=== PATIENT | female | born 1960 | race Caucasian/White ===

== ENCOUNTER 2020-02-25 02:41 | Outpatient (CLI) | payer OTHER, SELFPAY ==
[2020-02-25 18:57] LABS: SARS-CoV-2 RNA PCR Negative
== END 2020-02-25 02:42 | disposition home or self-care (01) ==
LOC: ANHCOVIDDT 02:41
PROVIDERS: PCP Family Medicine; Visit Provider Internal Medicine Gastroenterology
DX: Z01.812 Encounter for preprocedural laboratory examination (principal); Z11.59 Encounter for screening for other viral diseases
CPT/HCPCS: 87635; C9803; U0003

== ENCOUNTER 2020-02-28 01:00 | Day surgery (SDC) | payer OTHER, SELFPAY ==
[2020-02-21 11:39] VITALS: BMI 27.6
[2020-02-28 06:20] VITALS: BP 123/80; PULSE 71; RESP 18; TEMP 36.7; O2SAT 100
[2020-02-28] MEDS: LACTATED RINGERS 1,000 ML 150 ML IV CONT (07:09)
--- NOTE | 2020-02-28 07:41 | WPDANESEPPF ---
Anes - Initial Pre Proc Eval Procedure: Operation Date: 02/28/20 08:00 Proposed Procedures p Screening Colonoscopy - Erik Cano MD Date/Time: 02/28/20 07:41 Surgeon: Erik Cano MD Pre Op Diagnosis: Neoplasm Screening Patient Data Age: 59 Gender: F Height: 5 ft 4 in Weight: 71.6 kg Last Vital Signs Temp 98.1 F 02/28/20 06:20 Pulse 71 02/28/20 06:20 Resp 18 02/28/20 06:20 BP 123/80 02/28/20 06:20 Pulse Ox 100 02/28/20 06:20 Allergies Allergy/AdvReac Type Severity Reaction Status Date / Time amoxicillin Allergy Mild Rash Verified 02/28/20 06:41 codeine Allergy Unknown Unknown Verified 02/28/20 06:41 tramadol Allergy Unknown Cough Verified 02/28/20 06:41 hydrocodone AdvReac Mild NAUSEA AND Verified 02/28/20 06:41 VOMITING Home Medications Medication Instructions Recorded Confirmed Type escitalopram oxalate 5 mg tablet 5 mg PO DAILY 07/23/19 02/28/20 History leflunomide 20 mg tablet 20 mg PO DAILY 07/23/19 02/28/20 History fluticasone fur. 100 mcg-umeclid 1 inhalation INHALATION DAILY #90 09/08/19 02/28/20 Rx 62.5 mcg-vilant 25 mcg each inhalat.powder diclofenac sodium 75 mg 75 mg PO BID 01/05/20 02/28/20 History tablet,delayed release levothyroxine 100 mcg tablet 100 mcg PO DAILY #90 tablet 01/24/20 02/28/20 Rx fp-ny-jjyt-FA-Ca carb-vit K 18 tablet PO DAILY 02/21/20 02/28/20 History [Women's Multivitamin] Patient hx anesthesia problems: none Family hx anesthesia problems: none PMFSH Past Medical History Medical History (Updated 02/28/20 @ 07:41 by Jose Blevins MD) Hypothyroidism (acquired) Pulmonary emphysema Systemic lupus erythematosus Social History Social History Years smoked: 15 Smoking status: Never smoker Tobacco type: cigarettes Second hand tobacco smoke exposure: No Smoking end date: 07/21/97 Alcohol intake: current Gender identity (if verbalized by the patient): Female Anes - Eval Final PreProcedure Day of Procedure 02/28/20 07:41 Patient weight: normal Heart: regular rate and rhythm Lungs: clear to auscultation Airway: Mallampati scale class II Neurological: alert and oriented Last oral intake: >/= 8 hours ASA classification: III Emergent: no Anesthetic plan: proceed Anesthesia type and monitoring: general GIVS and standard monitoring Informed Consent: The patient's anesthetic plan and its attendant risks and benefits were discussed with the patient/family/POA. Questions were solicited and answers provided to the satisfaction of the patient/family/POA.
--- NOTE | 2020-02-28 07:51 | WPDGICN ---
Assessment and Plan Assessment and plan (1) Encounter for screening for colorectal malignant neoplasm: Code(s): Z12.11 - Encounter for screening for malignant neoplasm of colon; Z12.12 - Encounter for screening for malignant neoplasm of rectum Status: Acute Assessment and Plan: Patient appears to be at average risk. Screening colonoscopy to be performed today. GI Consult Note Consult date/time: 02/28/20 07:51 HPI: Taniya Austin is a 59 year old female Seen in evaluation at the request of Dr. Judd Woodson. Patient presents for neoplasia screening. Patient states her weight appetite bowel movements are normal. She denies abdominal pain. Her family history is noncontributory. Patient states that her there is no blood in her stools. Her weight has remained stable. Review of Systems Review of Systems: All systems reviewed & are unremarkable except as noted in HPI and below PMFSH Past Medical History Medical History Hypothyroidism (acquired) Pulmonary emphysema Systemic lupus erythematosus Family History Family History Mother Hypertension Father Cerebrovascular accident Family history of dementia Social History Social History Years smoked: 15 Smoking status: Never smoker Tobacco type: cigarettes Second hand tobacco smoke exposure: No Smoking end date: 07/21/97 Alcohol intake: current Gender identity (if verbalized by the patient): Female Meds Home Medications and Allergies Home Medications Medication Instructions Recorded Confirmed Type escitalopram oxalate 5 mg tablet 5 mg PO DAILY 07/23/19 02/28/20 History leflunomide 20 mg tablet 20 mg PO DAILY 07/23/19 02/28/20 History fluticasone fur. 100 mcg-umeclid 1 inhalation INHALATION DAILY #90 09/08/19 02/28/20 Rx 62.5 mcg-vilant 25 mcg each inhalat.powder diclofenac sodium 75 mg 75 mg PO BID 01/05/20 02/28/20 History tablet,delayed release levothyroxine 100 mcg tablet 100 mcg PO DAILY #90 tablet 01/24/20 02/28/20 Rx ca-zx-qnpx-FA-Ca carb-vit K 18 tablet PO DAILY 02/21/20 02/28/20 History [Women's Multivitamin] Allergies Allergy/AdvReac Type Severity Reaction Status Date / Time amoxicillin Allergy Mild Rash Verified 02/28/20 06:41 codeine Allergy Unknown Unknown Verified 02/28/20 06:41 tramadol Allergy Unknown Cough Verified 02/28/20 06:41 hydrocodone AdvReac Mild NAUSEA AND Verified 02/28/20 06:41 VOMITING Vital Signs Vital Signs - 24 hr 02/28/20 06:20 Temperature 98.1 F Pulse Rate 71 Respiratory Rate 18 Blood Pressure 123/80 Pulse Oximetry 100 Exam Narrative: Exam Narrative: Physical exam reveals patient to be alert. Vital signs Stable. HEENT exam unremarkable. She is anicteric. Lungs are clear to auscultation and percussion. Heart is without murmur or extra sounds. Abdominal exam bowel sounds are present soft nontender with no hepatosplenomegaly. Digital external rectal exam is normal.
[2020-02-28 08:25] VITALS: BP 118/95; PULSE 75; RESP 20; O2SAT 99
[2020-02-28 08:35] VITALS: BP 130/67; PULSE 60; RESP 14; O2SAT 100
[2020-02-28 08:45] VITALS: BP 136/82; PULSE 61; RESP 23; O2SAT 100
== END 2020-02-28 09:03 | disposition home or self-care (01) ==
PROVIDERS: PCP Family Medicine; Visit Provider Internal Medicine Gastroenterology
PROC: 0DJD8ZZ Inspection of Lower Intestinal Tract, Via Natural or Artificial Opening Endoscopic (ICD-10-PCS; CPT 45378; principal; 2020-02-28 08:00)
DX: Z12.11 Encounter for screening for malignant neoplasm of colon (principal); D12.4 Benign neoplasm of descending colon; E03.9 Hypothyroidism, unspecified; J43.9 Emphysema, unspecified; M32.9 Systemic lupus erythematosus, unspecified; Z87.891 Personal history of nicotine dependence
CPT/HCPCS: 45385; 88305; J2704; J7120

== ENCOUNTER 2020-03-15 07:50 | Outpatient (CLI) | payer OTHER, SELFPAY ==
--- NOTE | ~2020-03-15 | DEXA_ITS ---
Bone Density Report Name: Taniya Austin Age: 60 Sex: Female Ethnicity: White Date of : 1960 Indication: postmenopausal; asthma or emphysema; Referring Provider: NIYA FOUNTAIN Study: Bone densitometry was performed. Exam Date: March 15, 2020 Accession number: [id number] Bone Density: Region BMD T-score Z-score Classification AP Spine (L1-L4) 1.096 0.4 2.0 Normal Femoral Neck (Left) 0.822 -0.2 1.1 Normal Total Hip (Left) 0.920 -0.2 0.9 Normal Total Hip Bilateral Avg 0.904 -0.4 0.8 Normal Femoral Neck (Right) 0.817 -0.3 1.1 Normal Total Hip (Right) 0.886 -0.5 0.6 Normal World Health Organization criteria for BMD impression classify patients as: Normal (T-score at or above -1.0), Osteopenia (T-score between -1.0 and -2.5), or Osteoporosis (T-score at or below -2.5). 10-year Fracture Risk: FRAX not reported because: All T-scores for Spine Total, Hip Total, Femoral Neck at or above -1.0 Clinical Information Provided by Patient: Has used the following medications: Vitamin D Has the following medical conditions: Asthma or Emphysema Patient maximum height was 64 Menopause Age: 51 Drinks caffeinated beverages Onset of menses at age 7 Number of children 1 Impression: The patient has normal bone mass. Discussion: BONE DENSITY IS ABOVE THE MINIMUM DESIRABLE LEVEL AT ALL SKELETAL SITES TESTED. This patient?s bone mineral density is above the minimum desirable level (T-score -1.0 or better) at all sites measured. The patient should follow a healthful lifestyle (good nutrition with adequate calcium and vitamin D, and appropriate weight-bearing exercise). Follow-Up: Consider repeating this study in 5 years or sooner if there is some new clinical indication. Reported by: [facility] on 03/15/2020 8:40:00 AM. Reviewed, dictated and finalized at location AJadon BARROSO
--- NOTE | ~2020-03-15 | MM_ITS ---
EXAMINATION: MM screening jaime BI w silvia HISTORY: Screening TECHNIQUE: Craniocaudal and mediolateral oblique 3-D tomosynthesis images were obtained and synthetic 2-D images were generated. CAD analysis was submitted and interpreted. COMPARISON: Comparison to multiple prior studies sequentially, with oldest reviewed study dated 11/2010. BREAST PARENCHYMAL COMPOSITION: There are scattered areas of fibroglandular density. FINDINGS: There is no evidence of suspicious mass, calcification, or architectural distortion to sugg est malignancy in either breast. There has been no suspicious interval change. IMPRESSION: 1. No mammographic evidence of malignancy. 2. Recommend routine screening mammography in one year. BI-RADS Category 1: Negative Reviewed, dictated and finalized at location A.
== END 2020-03-15 07:51 | disposition home or self-care (01) ==
LOC: ANHIMG 07:52
PROVIDERS: PCP Family Medicine; Visit Provider Family Medicine
DX: Z12.31 Encounter for screening mammogram for malignant neoplasm of breast (principal); Z78.0 Asymptomatic menopausal state
CPT/HCPCS: 77063; 77067; 77080

== ENCOUNTER 2020-03-28 15:01 | Outpatient (RCR) | payer OTHER, SELFPAY ==
--- NOTE | 2020-03-28 15:46 | PTOPEVAL ---
Thank you for referring Taniya Austin to [facility][Note 3].? The patient is scheduled to be seen for therapy? ____x/week for ___ weeks. Please review, sign, date and return this plan of care AVELINO. I agree with and certify that the following plan of care is medically necessary. Referring Physician Date Admitting Provider: Attending Provider: PHYSICIAN NOT ON STAFF Referring Provider: *PT Outpatient Evaluation Start: 03/28/20 15:11 Freq: Status: Active Protocol: Document 03/28/20 15:11 JUSTEN (Rec: 03/28/20 15:40 JUSTEN [email or web address]) Outpatient Past Medical History Neurological History Hx Neurological Disorders No Significant History Cardiovascular History Hx Cardiac Disorders No Significant History Respiratory History Hx Chronic Obstructive Pulmonary Disease Yes (COPD) Gastrointestinal History Hx Cholecystectomy Yes Genitourinary History Hx Genitourinary Disorders No Significant History Musculoskeletal History Hx Arthritis Yes Hx Orthopedic Surgery Yes: shoulder repair Hematological History Hx Hematological Disorders No Significant History Endocrine History Hx Hypothyroidism Yes HEENT History Hx HEENT Disorders No Significant History Integumentary History Hx Other Skin Disorders Yes: psoriatic arhritis Reproductive History Hx Other Reproductive Disorders Yes: ovary removed Psychosocial History Hx Psychiatric Disorders No Significant History Pain History History of Any Previous or Ongoing No Significant History Instance of Pain Anesthesia History Hx Other Anesthesia Reactions Yes: nausea Evaluation Information Problem Diagnosis chronic low back pain with right sided sciatica Onset 03/28/20 Additional Evaluation Detail Oswestry= 48% limitation Subjective Information Pt. reports that she was dx Query Text:As Reported By Patient/ with psoriatic arthritis 1 Family year ago. She reports that she has had developing low back pain since. She describes pain across the low back and radiates into the hip joint. She states that sitting and walking for long periods will increase her pain . She states that turning her leg can increase her pain. She reports that pain can wake her at night. She states that her goal is to decrease her pain. Prior Level of Function Activity L
--- NOTE | 2020-04-25 09:08 | PCPTNOTE ---
04/25/20-pt cancelled appointment. pt states she just got out of hospital and will have to cancel for the week.-HM
== END 2020-04-18 23:59 | disposition home or self-care (01) ==
LOC: CHSPT 15:01
DX: M54.41 Lumbago with sciatica, right side (principal); G89.29 Other chronic pain
CPT/HCPCS: 97014; 97110; 97161; G0283

== ENCOUNTER 2020-06-02 06:47 | Outpatient (NON) | payer OTHER, SELFPAY ==
[2020-06-03 13:20] LABS: SARS-CoV-2 RNA PCR Negative
== END 2020-06-02 06:48 ==
LOC: ANHCOVIDDT 06:47
PROVIDERS: PCP Family Medicine; Visit Provider Family Medicine
DX: Z20.828 Contact with and (suspected) exposure to other viral communicable diseases (principal); R05 Cough; R50.9 Fever, unspecified; R52 Pain, unspecified
CPT/HCPCS: 87635; C9803; U0003

== ENCOUNTER 2020-11-13 14:58 | Outpatient (RCR) | payer OTHER, SELFPAY ==
--- NOTE | 2020-11-13 17:42 | PTOPEVAL ---
Thank you for referring Taniya Austin to [facility].? The patient is scheduled to be seen for therapy? ____x/week for ___ weeks. Please review, sign, date and return this plan of care AVELINO. I agree with and certify that the following plan of care is medically necessary. Referring Physician Date Admitting Provider: Attending Provider: FER QUINTERO Referring Provider: BeckyPT Outpatient Evaluation Start: 11/13/20 15:06 Freq: Status: Active Protocol: Document 11/13/20 15:06 ACR (Rec: 11/13/20 16:06 ACR [email or web address]) Therapy Assessment Status Assessment Status Assessment Status Evaluation Outpatient Past Medical History Neurological History Hx Neurological Disorders No Significant History Cardiovascular History Hx Cardiac Disorders No Significant History Respiratory History Hx Chronic Obstructive Pulmonary Disease Yes (COPD) Gastrointestinal History Hx Cholecystectomy Yes Genitourinary History Hx Genitourinary Disorders No Significant History Musculoskeletal History Hx Arthritis Yes Hx Orthopedic Surgery Yes: shoulder repair Hematological History Hx Hematological Disorders No Significant History Endocrine History Hx Hypothyroidism Yes HEENT History Hx HEENT Disorders No Significant History Integumentary History Hx Other Skin Disorders Yes: psoriatic arhritis Reproductive History Hx Other Reproductive Disorders Yes: ovary removed Psychosocial History Hx Psychiatric Disorders No Significant History Pain History History of Any Previous or Ongoing No Significant History Instance of Pain Anesthesia History Hx Other Anesthesia Reactions Yes: nausea Evaluation Information Problem Diagnosis R MARISOL Onset 11/08/20 Subjective Information Patient states on 11/08/20 she Query Text:As Reported By Patient/ got a R MARISOL. She states she Family was discharged at the hospital yesterday. Patient knows her precautions. Patient states that the pain medications are making her nauseous. Patient states she is doing the exercises her surgeon gave her which are, heel slides, SAQ, ankle pumps, glute sets, and supine hip abduction. Patient states she is having difficulty with walking, standing, navigating the stairs, standing for long periods of time, and doing any
--- NOTE | 2020-12-07 09:24 | PCPTNOTE ---
On 12/07/20, the student, [Luana Dumont, SPT], provided care and completed [email or web address] documentation on this patient. I have reviewed the student's documentation and agree with the findings.
--- NOTE | 2020-12-14 09:29 | PTOPEVAL ---
Thank you for referring Taniya Austin to [facility].? The patient is scheduled to be seen for therapy? ____x/week for ___ weeks. Please review, sign, date and return this plan of care AVELINO. I agree with and certify that the following plan of care is medically necessary. Referring Physician Date Admitting Provider: Attending Provider: FER QUINTERO Referring Provider: NISHANT Outpatient Evaluation Start: 11/13/20 15:06 Freq: Status: Active Protocol: Document 12/14/20 07:50 ACR (Rec: 12/14/20 09:29 ACR [id number]) Therapy Assessment Status Assessment Status Assessment Status Discharge Outpatient Past Medical History Neurological History Hx Neurological Disorders No Significant History Cardiovascular History Hx Cardiac Disorders No Significant History Respiratory History Hx Chronic Obstructive Pulmonary Disease Yes (COPD) Gastrointestinal History Hx Cholecystectomy Yes Genitourinary History Hx Genitourinary Disorders No Significant History Musculoskeletal History Hx Arthritis Yes Hx Orthopedic Surgery Yes: shoulder repair Hematological History Hx Hematological Disorders No Significant History Endocrine History Hx Hypothyroidism Yes HEENT History Hx HEENT Disorders No Significant History Integumentary History Hx Other Skin Disorders Yes: psoriatic arhritis Reproductive History Hx Other Reproductive Disorders Yes: ovary removed Psychosocial History Hx Psychiatric Disorders No Significant History Pain History History of Any Previous or Ongoing No Significant History Instance of Pain Anesthesia History Hx Other Anesthesia Reactions Yes: nausea Evaluation Information Problem Diagnosis R MARISOL Onset 11/08/20 Subjective Information Patient states that since Query Text:As Reported By Patient/ beginning therapy the patient Family reports she is at 80% improved . She states that she is able to do everything she needs to do, but has difficulty with getting her leg on and off of the bed. She uses her strap to help with that. She states she is able to to walk for long periods as long as she has her cane, but she is not using her cane in the house and is not having difficulty. She states she bought a heel lift for her L foot. Pain Assessment Timing of Pain Assessment Timing of Pain Assessment
== END 2020-12-14 10:00 | disposition home or self-care (01) ==
LOC: CHSPT 14:58
PROVIDERS: PCP Family Medicine
DX: M16.11 Unilateral primary osteoarthritis, right hip (principal)
CPT/HCPCS: 97110; 97116; 97161; 97530

== ENCOUNTER 2022-01-14 14:45 | Outpatient (CLI) | payer OTHER, SELFPAY ==
--- NOTE | ~2022-01-14 | MM_ITS ---
EXAMINATION: MM screening jaime BI w silvia HISTORY: Screening TECHNIQUE: Craniocaudal and mediolateral oblique 3-D tomosynthesis images were obtained and synthetic 2-D images were generated. CAD analysis was submitted and interpreted. COMPARISON: Comparison to multiple prior studies sequentially, with oldest reviewed study dated 02/2015. BREAST PARENCHYMAL COMPOSITION: 07/28/2014 FINDINGS: There is no evidence of suspicious mass, calcification, or architectural distortion to sugg est malignancy in either breast. There has been no suspicious interval change. IMPRESSION: 1. No mammographic evidence of malignancy. 2. Recommend routine screening mammography in one year. BI-RADS Category 1: Negative Reviewed, dictated and finalized at location A.
== END 2022-01-14 14:46 | disposition home or self-care (01) ==
LOC: ANHIMG 14:47
PROVIDERS: PCP Family Medicine; Visit Provider Physician Assistant Medical
DX: Z12.31 Encounter for screening mammogram for malignant neoplasm of breast (principal)
CPT/HCPCS: 77063; 77067

== ENCOUNTER 2022-04-29 16:55 | Outpatient (RCR) | payer OTHER, SELFPAY ==
--- NOTE | 2022-04-29 18:10 | PTOPEVAL1 ---
Assessment and note entered by Dionna Louis DPT Evaluation Information Assessment Status Evaluation Diagnosis Back pain Onset 04/16/2022 Subjective Information Pt reports that her back pain has been going on for several years now with insidious onset. Pain has been worsening especially in the last 4-5 months. Pt kept attributing pain to psoriatic arthritis, but went to see a pain specialist. She is to get surgery in July for her back. Pt has pain in her back as well as in her bilateral legs. She gets pain down to the toes in each leg but sometimes wanes in intensity as sometimes worsens in one leg over the other. Pt reports pain is better when she moves and worse with inactivity, especially sitting for more than 15 minutes. She reports she had had back pain in the past. Pt reports that sleep is mostly unaffected but depends on how active she is. Pt reports she likes to walk, swim, play with her grandkids. She is going to [place] in June so she wanted to hold off on surgery until after this trip. Reported Pain Level Pain Score 6: Self Report Assessment PT Clinical Summary Pt presents to physical therapy with low back pain and radicular symptoms and demonstrates decreased strength, decreased mobility, and antalgic gait. Her current deficits make it more challenging for her to maintain positions for an extended period of time such as sitting and standing. She was provided with an HEP focused on improving mobility and strength within her tolerance in preparation for her upcoming surgery in July. She will benefit from skilled PT to facilitate symptom relief, improve the aforementioned impairments, and return to functional and recreational activities. Plan of Care Interventions Electrical Stimulation,Gait Training,Hot Pack/Cold Pack,Manual Therapy,Mechanical Traction,Neuro Re- education,Patient/Caregiver Educati,Therapeutic Activities,Therapeutic Exercise PT Services Indicated Yes Treatment Frequency and 2x week for 12 visits Duration These treatments will address the objective and functional deficits as defined above. The patient will be advanced safely and appropriately in order for the patient to progress towards his/her prior level of function. Additional exercises will be introduced and as well as a comprehensive home exercise program upon discharge, if needed, ?to ensure carryover of functional gains achieved in the clinic. This
== END 2022-05-24 13:19 | disposition home or self-care (01) ==
LOC: CHSPT 16:55
DX: M51.36 Other intervertebral disc degeneration, lumbar region (principal)
CPT/HCPCS: 97014; 97110; 97140; 97161; G0283

== ENCOUNTER 2022-11-11 15:52 | Outpatient (RCR) | payer OTHER, SELFPAY ==
--- NOTE | 2022-11-11 16:37 | PTOPEVAL1 ---
Assessment and note entered by Judd Mata Evaluation Information Assessment Status Evaluation Diagnosis low back pain Onset 11/01/22 Subjective Information Pt. reports that she has had on/off back pain for years. She reports she was scheduled for surgery but was denied surgery by her insurance. She reports that her pain is located across the low back and goes into both thighs and into the feet. She reports that pain is worsened with long periods of sitting. She reports that she can only stand for about 15 minutes before having to sit down. she states that she continues to work and utilizes a sit to stand desk at work. She tries to walk once and hour at work to combat her pain. She reports that she sleeps better sitting up compared to laying flat. She reports she does not have to much trouble with sleep. She states that her goal is to decrease her back pain. Reported Pain Level Pain Score 7: Self Report Assessment PT Clinical Summary Pt. is a 62 year old female who enters the clinic with low back pain. She presents with impaired lumbar mobility, impaired l.e. strength, impaired postural awareness and pain. Continued skilled PT is indicated in order to improve these areas to allow the pt. to achieve improved comfort with all IADL's. Plan of Care Interventions Electrical Stimulation,Hot Pack/Cold Pack,Manual Therapy,Patient/Caregiver Educati,Therapeutic Activities,Therapeutic Exercise PT Services Indicated Yes Treatment Frequency and 2x/week x 10 visits Duration These treatments will address the objective and functional deficits as defined above. The patient will be advanced safely and appropriately in order for the patient to progress towards his/her prior level of function. Additional exercises will be introduced and as well as a comprehensive home exercise program upon discharge, if needed, ?to ensure carryover of functional gains achieved in the clinic. This treatment plan has been reviewed and agreement upon by the patient.
--- NOTE | 2022-12-19 18:14 | PTOPDC ---
Assessment and note entered by Sarah Arenas, PT Evaluation Information Assessment Status Discharge Diagnosis low back pain Onset 11/01/22 Subjective Information Taniya Austin reports her lower back pain is still present but greatly improved. She is able to move around easier and is able to sleep pain free now. She does still have limitations with prolonged sitting or standing to 30 minutes. She feels she has improved 65% overall since initiating PT and is comfortable continuing her HEP. Reported Pain Level Pain Score 5: Self Report Assessment PT Clinical Summary Taniya Austin has completed 9 skilled PT visits for low back pain. She is reporting a 65% overall improvement in her lower back pain. She objectively demonstrates improved lumbar AROM, improved core strength, and no tenderness. She will be discharged. Plan of Care PT Services Indicated Yes
== END 2022-12-19 16:54 | disposition home or self-care (01) ==
LOC: CHSPT 15:52
DX: M48.061 Spinal stenosis, lumbar region without neurogenic claudication (principal); M51.16 Intervertebral disc disorders with radiculopathy, lumbar region; M51.36 Other intervertebral disc degeneration, lumbar region
CPT/HCPCS: 97014; 97110; 97161; 97750; G0283

== ENCOUNTER 2023-05-11 11:03 | Emergency (ER) | payer MEDICARE, OTHER, SELFPAY ==
--- NOTE | ~2023-05-11 | XR_ITS ---
XR chest 2V 05/11/2023 11:45 Indication: Cough Procedure: 2 view chest Comparison: 04/28/2019 Findings: There is chronic scarring in the upper lobes. Heart size normal. No focal air space disease , pulmonary edema, pleural effusion or suspected pneumothorax. Impression: 1: No acute cardiopulmonary disease. Reviewed, dictated and finalized at location A. Impression: 1: No acute cardiopulmonary disease.
[2023-05-11 11:04] VITALS: BP 159/101; PULSE 84; RESP 16; TEMP 36.4; O2SAT 100
--- NOTE | 2023-05-11 11:40 | PC.NURSE ---
pt taken to xray at this time
--- NOTE | 2023-05-11 11:45 | PC.NURSE ---
pt returned to room 16 at this time
--- NOTE | 2023-05-11 12:15 | ED.GENADULT ---
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 She comes today because she just got back home after a trip with family and started to have sore throat /cough that started about 3 days ago and 4 of the people she was with have tested positive for Strep. Denies chest pain/ shortness of breath / fevers Related Data Home Medications Medication Instructions Recorded Confirmed leflunomide 20 mg tablet 20 mg PO DAILY 07/23/19 10/30/22 [id number]-pmb-[id number]-FA-Ca carb-vit K 18 tablet PO DAILY 02/21/20 10/30/22 18 mg iron-400 mcg-500 mg tablet (Women's Multivitamin) clobetasol 0.05 % topical cream 1 applic topical DAILY PRN 08/04/20 10/30/22 triamcinolone acetonide 0.1 % 1 applic topical BID PRN 08/04/20 10/30/22 topical cream acetaminophen 650 mg 650 mg PO Q12H 02/22/22 10/30/22 tablet,extended release (Tylenol Arthritis Pain) azithromycin 500 mg tablet See Rx Instructions PO .COMPLEX 10/30/22 10/30/22 celecoxib 100 mg capsule 100 mg PO BID 10/30/22 10/30/22 ethambutol 400 mg tablet 400 mg PO DAILY 10/30/22 10/30/22 fluconazole 150 mg tablet 150 mg PO DAILY 10/30/22 10/30/22 magnesium oxide 400 mg PO DAILY 10/30/22 10/30/22 multivitamin-ferrous 1 tablet PO DAILY 10/30/22 10/30/22 fumarate-folic acid 18 mg-400 mcg tablet (Centrum) rifampin 300 mg capsule 300 mg PO DAILY 10/30/22 10/30/22 secukinumab 75 mg/0.5 mL 150 mg subcut WEEKLY 10/30/22 10/30/22 subcutaneous syringe (Cosentyx) secukinumab 150 mg/mL subcutaneous mg subcut 12/23/22 pen injector (Cosentyx Pen) Allergies Allergy/AdvReac Type Severity Reaction Status Date / Time amoxicillin Allergy Mild Rash Verified 05/11/23 11:06 codeine Allergy Unknown Unknown Verified 05/11/23 11:06 tramadol Allergy Unknown Cough Verified 05/11/23 11:06 hydrocodone AdvReac Mild NAUSEA AND Verified 05/11/23 11:06 VOMITING Review of Systems Review of Systems: CONSTITUTIONAL: Denies fever, chills, or sweats. EYES: Denies visual changes, redness, or discharge. ENT: Denies rhinorrhea, congestion, sore throat, or otalgia. CARDIOVASCULAR: Denies chest pain, palpitations, or edema. RESPIRATORY: Denies cough or dyspnea. GASTROINTESTINAL: Denies abdominal pain, nausea, vomiting, or diarrhea. GENITOURINARY: Denies dysuria or hematuria. SKIN: Denies rash or itching. MUSCULOSKELETAL: Denies back pain, joint pain, or myalgia. NEUROLOGIC: Denies headache, numbness, dizziness, or weakness. PSYCHIATRIC: Denies anxiety or depression. [facility] Past Medical History Medical History Arthritis of right hip Chronic obstructive pulmonary disease Colon polyp COVID-19 Coxa vara (acquired) Hypothyroidism (acquired) Leg length difference, acquired Overweight (BMI 25.0-29.9) Psoriatic arthritis Pulmonary emphysema Systemic lupus erythematosus Surgical History Surgical History History of arthroplasty of right hip Family History Family History Mother Hypertension Father Cerebrovascular accident Family history of dementia Social History Social History Years smoked: 15 Smoking status: Former smoker Tobacco type: cigarettes Second hand tobacco smoke exposure: No Smoking end date: 07/21/97 Alcohol intake: current Substance use: never Lack of Transportation: No Lack of Food: Never True Current Housing: I Have Housing Concerned About Future Housing: No Difficulty Paying Gas/Electric Bills: No Difficulty Paying for Me
[2023-05-11 12:20] LABS: Influenza A QL RT-PCR Negative (Negative); Influenza B QL RT-PCR Negative (Negative); RSV RNA, RT-PCR Negative (Negative); SARS-CoV-2 RNA PCR Negative (Negative)
[2023-05-11 12:30] LABS: Strep Group A RT-PCR NOT DETECTED (Negative)
== END 2023-05-11 12:45 | disposition home or self-care (01) ==
PROVIDERS: Emergency Medicine; Emergency Provider Nurse Practitioner Family; PCP Family Medicine
DX: B34.9 Viral infection, unspecified (principal); E03.9 Hypothyroidism, unspecified; Z87.891 Personal history of nicotine dependence; Z20.822 Contact with and (suspected) exposure to COVID-19
CPT/HCPCS: 71046; 87637; 87651; 99283

== ENCOUNTER 2023-05-26 08:05 | Outpatient (RCR) | payer MEDICARE, OTHER, SELFPAY ==
--- NOTE | 2023-05-26 09:00 | PTOPEVAL1 ---
Assessment and note entered by Judd Mata Evaluation Information Assessment Status Evaluation Diagnosis left shoulder pain, psoriatic arthritis Onset 01/18/23 Subjective Information Pt. reports she developed shoulder pain around January. She reports no specific trauma, just woke with left shoulder pain. She describes pain in the area of the lateral brachial region of the left arm. She reports that pain will radiate into the shoulder and sometimes down into the hand. She describes the pain as a heavy ache. She denies any neck pain. She reports that pain is worsend with laying on her back or laying on the left side. She reports that reaching behind her back will also increase her pain. She states that she is only able to get about 4 hours on uninterupted sleep per night. She reports that reaching up and out with the left arm will increase her pain and washing her hair is difficult due to pain. Pt. is right hand dominant . She reports that her goal is to decrease her left shoulder pain. Reported Pain Level Pain Score 8: Self Report Assessment PT Clinical Summary Pt. is a 63 year old female who enters the clinic with indication of impingement syndrome at the left shoulder. She presents with impaired postural awareness, impaired proximal left u.e. strength and left shoulder stiffness. Continued skilled PT is indicated in order to improve these areas to allow the pt. to be able to complete all IADL's with improve comfort and efficiency. Plan of Care Interventions Electrical Stimulation,Hot Pack/Cold Pack,Manual Therapy,Neuro Re-education,Patient/Caregiver Educati,Therapeutic Activities,Therapeutic Exercise PT Services Indicated Yes Treatment Frequency and 3x/week x 12 visits Duration These treatments will address the objective and functional deficits as defined above. The patient will be advanced safely and appropriately in order for the patient to progress towards his/her prior level of function. Additional exercises will be introduced and as well as a comprehensive home exercise program upon discharge, if needed, ?to ensure carryover of functional gains achieved in the clinic. This treatment plan has been reviewed and agreement upon by the patient.
--- NOTE | 2023-05-26 09:01 | OPREHPOC ---
Outpatient Therapy Plan of Care This is a Multidisciplinary Plan of Care that may contain components documented by all disciplines (PT, OT, and ST.) PT Problem 1 PT Problem #1 Knowledge Deficit PT Goal 1 Goal Pt. will be independent with a HEP addressing strength and postural awareness Target Visit 2 PT Problem 2 PT Problem #2 Impaired Range of Motion PT Goal 1 Goal Pt. will demonstrate 165 degrees left shoulder flexion AROM Target Visit 12 PT Problem 3 PT Problem #3 Impaired Strength PT Goal 1 Goal Pt. will present with 5/5 proximal left u.e. strength in all planes of movement Target Visit 12 PT Problem 4 PT Problem #4 Impaired Functional Mobil PT Goal 1 Goal Pt. will present with less than 35% limiation on the Quick DASH indicating improved function. Target Visit 12
--- NOTE | 2023-06-16 08:49 | PTOPEVAL1 ---
Assessment and note entered by Judd Mata Evaluation Information Assessment Status Progress Diagnosis left shoulder pain, psoriatic arthritis Onset 01/18/23 Subjective Information Pt. reports she is doing better. She reports that her pain is less intense and that she is sleeping better. She states that she is getting about 6 hours of consectutive sleep per night. Reported Pain Level Pain Score 3: Self Report Assessment PT Clinical Summary Pt. has attended a total of 10 treatment sessions. In this time she has demonstrated progress in regards to strength and mobility pentecostalism. She continues to present with weakness and pain despite her progress. Given her progress continued skilled PT is indicated in order to further improve strength to allow for the ability to complete all IADL's without limitation. Plan of Care Interventions Electrical Stimulation,Hot Pack/Cold Pack,Neuro Re -education,Patient/Caregiver Educati,Therapeutic Activities,Therapeutic Exercise PT Services Indicated Yes Treatment Frequency and Continue treatment 2x/week for 1 week and 1x/week Duration x 4 weeks for a total of 6 treatment sessions to further improve strength and mobilty defictis. These treatments will address the objective and functional deficits as defined above. The patient will be advanced safely and appropriately in order for the patient to progress towards his/her prior level of function. Additional exercises will be introduced and as well as a comprehensive home exercise program upon discharge, if needed, ?to ensure carryover of functional gains achieved in the clinic. This treatment plan has been reviewed and agreement upon by the patient.
== END 2023-06-20 20:00 | disposition home or self-care (01) ==
LOC: CHSPT 08:05
DX: L40.50 Arthropathic psoriasis, unspecified (principal)
CPT/HCPCS: 97110; 97140; 97161

== ENCOUNTER 2023-07-10 06:58 | Outpatient (CLI) | payer MEDICARE, OTHER, SELFPAY ==
[2023-07-10 08:42] LABS: Cholesterol 243 mg/dL (0-200); HDL Direct 94 mg/dL (40-60); LDL Cholesterol Calculated 140 mg/dL (<130); Thyroid Stimulating Hormone 4.15 uIU/mL (0.36-3.74); Triglycerides 43 mg/dL (0-150)
== END 2023-07-10 06:59 | disposition home or self-care (01) ==
PROVIDERS: PCP Family Medicine; Visit Provider Nurse Practitioner Family
DX: E03.9 Hypothyroidism, unspecified (principal); E66.3 Overweight; L40.50 Arthropathic psoriasis, unspecified
CPT/HCPCS: 36415; 80061; 84443

== ENCOUNTER 2023-07-16 11:31 | Outpatient (CLI) | payer MEDICARE, OTHER, SELFPAY ==
[2023-07-16 12:17] LABS: SARS-CoV-2 RNA PCR Positive (Negative)
[2023-07-16 12:20] LABS: Influenza A QL RT-PCR Negative (Negative); Influenza B QL RT-PCR Negative (Negative); RSV RNA, RT-PCR Negative (Negative)
== END 2023-07-16 11:32 | disposition home or self-care (01) ==
LOC: CHSLAB 11:33
PROVIDERS: PCP Family Medicine; Visit Provider Nurse Practitioner Family
DX: J18.9 Pneumonia, unspecified organism (principal); Z20.822 Contact with and (suspected) exposure to COVID-19
CPT/HCPCS: 87637

== ENCOUNTER 2023-09-19 15:29 | Outpatient (CLI) | payer MEDICARE, OTHER, SELFPAY ==
--- NOTE | ~2023-09-19 | MM_ITS ---
EXAMINATION: MM screening [facility] BI w silvia HISTORY: Screening TECHNIQUE: Craniocaudal and mediolateral oblique 3-D tomosynthesis images were obtained and synthetic 2-D images were generated. CAD analysis was submitted and interpreted. COMPARISON: Comparison to multiple prior studies sequentially, with oldest reviewed study dated 07/2023. BREAST PARENCHYMAL COMPOSITION: There are scattered areas of fibroglandular density. FINDINGS: There is no evidence of suspicious mass, calcification, or architectural distortion to sugg est malignancy in either breast. There has been no suspicious interval change. IMPRESSION: 1. No mammographic evidence of malignancy. 2. Recommend routine screening mammography in one year. BI-RADS Category 1: Negative Reviewed, dictated and finalized at location A. [employer]
== END 2023-09-19 15:30 | disposition home or self-care (01) ==
LOC: ANHIMG 15:31
PROVIDERS: PCP Family Medicine; Visit Provider Nurse Practitioner Family
DX: Z12.31 Encounter for screening mammogram for malignant neoplasm of breast (principal)
CPT/HCPCS: 77063; 77067

== ENCOUNTER 2024-09-09 00:31 | Day surgery (SDC) | payer MEDICARE, OTHER, SELFPAY ==
[2024-08-23 12:48] VITALS: BMI 29.1
--- OUTSIDE RECORDS SUMMARY | 2024-09-09 00:34 | XMS_ITS | Encounter Summary ---
Author Organization [facility] Address [address] [place] [address] Phone Care Team Providers Care Ram Car Operator Name Role Phone Judd Woodson MD Primary Care Provider [phone] Emily Hinton NP Unavailable [phone] Brian Woo MD Unavailable [phone] Encounter Details Date Type Department Care Team (Late st Contact Info) Description 04/19/2021 Orders Only [facility] Orthopaedic Surgery [address] [facility] Advanced Medicine 6th [place] [address] [place] [address] Will Salguero MD [address] [facility] [address] [place] [address] Social History Tobacco Use Types Packs/Day Years Used Date Smoking Tobacco: Former Cigarettes 0.5 15 1 985 - 2000 Smokeless Tobacco: Never Alcohol Use Standard Drinks/Week Comments Yes 0 (1 standard drink = 0.6 oz pur e alcohol) rare AUDIT-C Answer Date Recorded Q1: How often do you have a drink containing alc ohol? Never 11/06/2020 Average Number of Drinks Not on file 021 Frequency of Binge Drinking Not on file 10/19 Comments No Sex and Gender Information Value Date Recorded Sex Assigned at Not on file Legal Sex Female 6:49 PM CONTINUING EDUCATION SPECIALIST Gender Identity Female 09/13/2020 6:20 AM CONTINUING EDUCATION SPECIALIST Sexual Orientation Not on file documented as of this encounter Plan of Treatment Not on file documented as of this encounter Goals Goal Patient Goal Type Associated Problems Recent Progress Patient-Stated? Author CCM Chronic Pain Care Plan Chronic Care Management No change(04/17 7:32 AM CDT) No Noelle Carl RN Note: Problem: Chronic Pain Goals: 1. Minimize further functional decline 2. Maximize quality of life 3. Control pain Strategies: - Activity/exercise program recommendation - Conservative stepwise pain medicine strategy with multi-disciplinary approach - Recommend healthy lifestyle strategies and compensatory methods as needed documented as of this encounter Visit Diagnoses Not on filedocumented in this encounter Additional Health Concerns Infection Onset Date Last Indicated Resolved Time Tuberculosis (rule out) Comment:06/04/2022 growing Mycobacterium aviuim. Nichol Snowden RN 05/30/2022 BAL on 05/20 growing AFB, no previous positive labs. Nichol Snowden RN 05/30/2022 05/30/2022 06/04/2022 9:[address] documented as of this encounter Care Teams Ram Car Operator Relationship Specialty Start Date End Date Judd Woodson MD PCP - General Family Medicine 11/05/18 Emily Hinton NP [address] [place] [address] Nurse Practitioner Used Building [employer] Yard Worker 10/09/22 Brian Woo MD [address] [place] [address] Consulting Physician Neurosurgery 11/01/22 [facility] - Outpatient Therapy Physical Therapist 07/21/22 documented as of this encounter
--- OUTSIDE RECORDS SUMMARY | 2024-09-09 00:35 | XMS_ITS | Encounter Summary ---
Author Organization [facility] Address [address] [place] [address] Phone Care Team Providers Care Chief Operations Officer Name Role Phone Jdud Woodson MD Primary Care Provider [phone] Emily Hinton NP Unavailable Brina Woo MD Unavailable [phone] Encounter Details Date Type Department Care Team (Late st Contact Info) Description 07/02/2023 Documentation [facility] Dermatology [address] [facility] [address] [place] [address] Ky Ayala MD [address] [place] [address] Social History Tobacco Use Types Packs/Day Years Used Date Smoking Tobacco: Former Cigarettes 0.5 28 1 972 - 2000 Smokeless Tobacco: Never Alcohol Use Standard Drinks/Week Comments Yes 0 (1 standard drink = 0.6 oz pur e alcohol) rare OASIS D0700: Social Isolation Answer Da te Recorded Frequency of experiencing loneliness or isolatio n Never 11/20/2022 AUDIT-C Answer Date Recorded Frequency of Alcohol Consumption Not on file 10/17/2022 Q2: How many drinks containi ng alcohol do you have on a typical day when you are drinking? Patient does not drink Frequency of Binge Drinking Not on file 03/3 Personal Safety Answer Date Recorded Have you ever been in or are you currently in a harmful physical or emotional relationship or is someone making you feel afraid or unsafe? Denies 11/19/2022 Comments No Sex and Gender Information Value Date Recorded Sex Assigned at Not on file Legal Sex Female 6:49 PM [employer] Gender Identity Female 09/13/2020 6:20 AM [employer] Sexual Orientation Not on file documented as [...] Diagnoses Not on filedocumented in this encounter Care Teams Chief Operations Officer Relationship Specialty Start Date End Date Judd Woodson MD PCP - General Family Medicine 11/05/18 Emily Hinton NP [address] [place] [address] Nurse Practitioner Wilton Weaver 10/09/22 Brian Woo MD [address] [address] Consulting Physician Neurosurgery 11/01/22 [facility] - Outpatient Therapy Physical Therapist 07/21/22 documented as of this encounter
--- OUTSIDE RECORDS SUMMARY | 2024-09-09 00:35 | XMS_ITS | Clinical Summary ---
Author Organization [facility] Address [address] [place] [address] Care Team Providers Care Floor Trader Name Role Phone Judd Woodson MD Primary Care Provider [phone] Emily Hinton NP Unavailable Brian Woo MD Unavailable [phone] Allergies Active Allergy Reactions Criticality Noted Date Comments Codeine Nausea only Low 02/05/2019 Gabapentin Nausea & Vomiting Low 11/27/2020 Hydrocodone Other (See comments) Low 11/15/2020 Nausea, Vomiting, Shakiness, Headaches Tramadol Nausea only Low 02/05/2019 Medications loratadine (CLARITIN) 10 mg tabletIndications :Allergic Rhinitis Take 1 tablet (10 mg total) by mouth as needed Active multivitamin-iron -folic acid (Centrum) 18-400 mg-mcg tabletIndications :Vitamin Deficiency Prevention Take 1 tablet by mouth every morning Active acetaminophen ER (TYLENOL) 650 mg 8 hr tabletIndications :Arthritic Pain Take 1 tablet (650 mg total) by mouth every 6 (six) hours Active magnesium oxide 400 mg magnesium capsuleIndication s:hypomagnesemia Take 1 tablet by mouth every other day Active triamcinolone (KENALOG) 0.1 % creamIndications: Skin Inflammation Apply topically as needed for irritation 45 g 1 3 Active citalopram (CeleXA) 20 mg tablet Take 1 tablet (20 mg total) by mouth daily 3 Active levothyroxine (SYNTHROID) 112 mcg tablet Take 1 tablet (112 mcg total) by mouth daily 3 Active fluticasone propionate (FLONASE) 50 mcg/actuation nasal spray Administer 1 spray into each nostril daily 1 each 3 4 Active halobetasol (ULTRAVATE) 0.05 % cream Apply topically 2 (two) times a day as needed for rash 50 g 2 4 Active celecoxib (CeleBREX) 200 mg capsule Take 1 capsule (200 mg total) by mouth 2 (two) times a day 180 capsule 2 4 12/22/19 25 Active metoprolol XL (TOPROL-XL) 25 mg extended release tablet Take 1 tablet (25 mg total) by mouth daily 4 Active leflunomide (ARAVA) 20 mg tabletIndications :Psoriatic arthritis (HCC) Take 1 tablet (20 mg total) by mouth every morning 90 tablet 1 4 Active Active Problems Problem Noted Date Diagnosed Date Psoriatic arthritis 08/16/2023 High risk medication use 08/16/2023 Encounter for long-term (current) use of antibio tics 01/31/2023 DDD (degenerative disc disease), lumbar 10/29/19 23 Overview (10/28/2022): Added automatically from request for surgery [id number] Mycobacterium infection 08/13/2022 Assessment & Plan (10/11/2022 2:32 PM CDT): - positive for mycobacterium avium infection, susceptibilities are scanned into [employer]. - Continue Assessment & Plan (08/13/2022 10:30 AM MOUNTER SOUSAPHONES): - opt for treatment of mycobacterium avium infection especially since she is immunosuppressed, we have requested susceptibilities on the sample but that may take a few weeks. - We have also ordered additional blood work including crypto, blasto, histo, APBA cascade. - - the patient is scheduled for a lumbar fusion next week. Ideally, we would prefer her to be on treatment for MAC for at least a month prior to surgery. Typically this infection stays localized to the lung and is very slow growing but there have been cases reported of spinal hardware associated infections occurring due to this bacteria. It would be safer if she could start therapy for at least one month prior to surgery. - This was discussed with her surgeon and he agreed to postpone - she can resume her rheumatological meds to help with pain in the interim (these were stopped prior to lumbar fusion) Intervertebral disc disorder with radiculopathy of lumbar region 05/28/2022 Overview (05/28/2022): Added automatically from request for surgery [id number] Neuroforaminal stenosis of lumbar spine 05/28/20 Overview (05/28/2022): Added automatically from request for surgery [id number] Pulmonary infiltrates 05/27/2022 Primary osteoarthritis of right hip 07/26/2020 Overview (07/26/2020): Added automatically from request for surgery [id number] Sacroiliac joint dysfunction of right side 06/12 COPD (chronic obstructive pulmonary disease) MDD (major depressive disorder) 02/08/2019 Hypothyroid 02/08/2019 Osteoarthritis 02/08/2019 Lung nodule Encounters Date Type Department Care Team Description 09/07/2024 10:30 AM MOUNTER SOUSAPHONES Office Visit [facility] Pulmonary [address] 8th [place] [address] [place] [address] Alexx Curry Chi, MD Pulmonary infiltrates (Primary Dx) 09/07/2024 8:30 AM MOUNTER SOUSAPHONES Infusion [facility] [address] [place] [phone] Psoriatic arthritis (HCC) (Primary Dx) 08/06/2024 9:00 AM MOUNTER SOUSAPHONES Infusion [facility] [address] [place] [phone] Psoriatic arthritis (HCC) (Primary Dx) 07/09/2024 9:30 AM MOUNTER SOUSAPHONES Infusion [facility] [address] [place] [phone] Psoriatic arthritis (HCC) (Primary Dx) 07/09/2024 9:10 AM MOUNTER SOUSAPHONES Lab [facility] ([facility]) [address] [place] [phone] Psoriatic arthritis (HCC) 07/09/2024 8:30 AM MOUNTER SOUSAPHONES Office Visit [facility] Rheumatology [address] [facility] 5th [place] [address] [place] [phone] Ciara Minor MD Psoriatic arthritis (HCC) (Primary Dx) 07/09/2024 Telephone [facility] Rheumatology [facility] 5th [place] [address] [place] [phone] Ciara Minor MD 06/23/2024 Orders Only [facility] [address] [place] [phone] Sadie Roberson RN 06/10/2024 Telephone [facility] Rheumatology [address] [place] [address] 5th [place] [address] [place] [address] Ciara Minor MD from Last 3 Months Immunizations Immunization Administration Dates Next Due COVID-19 mRNA (SecureWave) 0.3 m L (30 mcg) vaccine (12 years and up) 05/17/2024 Influenza, Quadrivalent, Hig h Dose, Preservative Free, Intrr 05/01/2021,05/02/2020 Influenza, Quadrivalent, Spl it, Preservative Free, Intramuscular 06/06/2022,04/16/2019,04/14/2019 Influenza, Trivalent, Preser vative Free, Intramuscular 05/17/2024 Influenza, Unspecified 04/25/2023 Okan SARS-CoV-2 Monovalent Vaccination (12+ Yrs) LU-READY TO USE 11/30/2021 Pneumococcal Conjugate PCV 13 02/18/2019 Pneumococcal Polysaccharide PPV23 07/23/2019 RSV Vaccine, Pref, Recombina nt, Subunit, Adjuvanted, PF, IM (Arexvy) 07/29/2023 ZOSTER Recombinant 06/09/2020,03/10/2020 Surgical History Surgery Date Site/Laterality Comments ROTATOR CUFF REPAIR Right CHOLECYSTECTOMY FLUORO GUIDED INJECTION HIP RIGHT 02/24/2019 Right FLUORO GUIDED INJECTION HIP RIGHT 08/09/2019 Right OOPHORECTOMY 07/21/1998 - 07/20/1999 TOTAL HIP ARTHROPLASTY 07/21/2020 - 07/20/2021 JOINT REPLACEMENT SKIN BIOPSY IR PICC LINE PLACEMENT > 5 YEARS 11/19/2022 N/A Medical History Medical History Date Comments COPD (chronic obstructive pulmonary disease) (HC C) Hypothyroidism MDD (major depressive disorder) Rotator cuff tear Bursitis Arthritis Emphysema lung (HCC) Emphysema of lung (HCC) Pneumonia Allergic rhinitis PONV (postoperative nausea and vomiting) scopolamine naive Family History Medical History Relation Name Comments Hypertension Brother Psoriasis Father Stroke Father Hypertension Mother Atrial fibrillation Sister Anesthesia problems Neg Hx Malig Hyperthermia Neg Hx Pseudochol deficiency Neg Hx Relation Name Status Comments Brother Father Mother Sister Social History Tobacco Use Types Packs/Day Years Used Date Smoking Tobacco: Former Cigarettes 0.5 28 1 972 - 2000 Smokeless Tobacco: Never Tobacco Cessation:Counseling Given: Not Answered Alcohol Use Standard Drinks/Week Comments Yes 0 [...] Frequency of Binge Drinking Not on file 09/20 Hunger Vital Sign Answer Date Recorded Within the past 12 months, y ou worried that your food would run out before you got the money to buy more. Never true 08/06/19 25 Within the past 12 months, t he food you bought just didn't last and you didn't have money to get more. Never true 08/06/2024 Personal Safety Answer Date Recorded Have you ever been in or are you currently in a harmful physical or emotional relationship or is someone making you feel afraid or unsafe? Denies 09/07/2024 Comments No Sex and Gender Information Value Date Recorded Sex Assigned at Not on file Legal Sex Female 6:49 PM MOUNTER SOUSAPHONES Gender Identity Female 09/13/2020 6:20 AM MOUNTER SOUSAPHONES Sexual Orientation Not on file Obstetrics History Last Filed Vital Signs Vital Sign Reading Time Taken Comments Blood Pressure 155/90 09/07/2024 10:30 AM MOUNTER SOUSAPHONES Patient just had infusion Pulse 60 09/07/2024 10:30 AM MOUNTER SOUSAPHONES Temperature 35.9 C (96.7 F) 09/07/2024 10:30 AM MOUNTER SOUSAPHONES Respiratory Rate 18 09/07/2024 10:3 0 AM MOUNTER SOUSAPHONES Oxygen Saturation 97% 09/07/2024 10: 30 AM MOUNTER SOUSAPHONES Inhaled Oxygen Concentration - - Weight 83.8 kg (184 lb 12.8 oz) 09/07/2024 10:30 AM MOUNTER SOUSAPHONES Height 162.6 cm (5' 4 ) 09/07/2024 10:3 0 AM MOUNTER SOUSAPHONES Body Mass Index 31.72 09/07/2024 10:30 AM MOUNTER SOUSAPHONES Plan of Treatment Health Maintenance Due Date Last Done Comments Breast Cancer Screening-Mammogram 1960 Colon Cancer Screening-Colonoscopy 1960 Depression Screening 1960 Osteoporosis Screening-Bone Density Scan 1960 DTaP/Tdap/Td Vaccine (1 - Tdap) 1969 Well Visit 65+ 2023 Fall Risk Assessment 11/20/2023 11/19/2022 Pneumococcal vaccine 65+ (3 of 3 - PCV20 or PCV21) 07/23/2024 07/23/2019, 02/18/2019 Covid-19 Vaccine (6 - 2023-2 5 season) 2024 05/17/2024, 11/30/2021, 04/09/2021, Additional history exists Zoster Vaccine Completed 06/09/2020, 03/10/2020 Hepatitis B Screening Completed 03/26/2024 Hepatitis C Screening Completed 03/26/2024 , 04/25/2023, 03/08/2022, Additional history exists Influenza Vaccine Completed 05/17/2024, , 06/06/2022, Additional history exists Goals Goal Patient Goal Type Associated Problems Recent Progress Patient-Stated? Author CCM Chronic Pain Care Plan Chronic Care Management No change(04/17 7:32 AM CDT) No Noelle Carl, RN Note: Problem: Chronic Pain Goals: 1. Minimize further functional decline 2. Maximize quality of life 3. Control pain Strategies: - Activity/exercise program recommendation - Conservative stepwise pain medicine strategy with multi-disciplinary approach - Recommend healthy lifestyle strategies and compensatory methods as needed Medical Devices Implanted Type Area Sdet Device Identifier Shelf Expiration Date Model / Serial / Lot [employer] [id number] 50mm Limit 3 Hole Hip D Hemisphere Offset Shell Acetabular - S0 - [id number] Implanted:Qty: 1 on 11/08/2020 by Will Salguero MD at [facility] Other - see comments Right: Hip [employer] [id number] 03/19/2030 [id number] / 0 / [id number] [employer] [id number] 36mm Lumen Hip D Liner Acetabular Longevity Sterile Latex Free - S0 - [id number] Implanted:Qty: 1 on 11/08/2020 by Will Salguero MD at [facility] Other - see comments Right: Hip [employer] [id number] 06/13/[id number] / 0 / [id number] [employer] [id number] Taperloc 144mm Type 1 Press Fit Reduce Hip 133d 12 Standard - S0 - [id number] Implanted:Qty: 1 on 11/08/2020 by Will Salguero MD at [facility] Other - see comments Right: Hip [employer] [id number] 11/16/2029 [id number] / 0 / [id number] [employer] 650-0660 G7 36mm Type 1 Modular Hip Acetabular -3mm Offset Head Femoral - S0 - [id number] Implanted:Qty: 1 on 11/08/2020 by Will Salguero MD at [facility] Other - see comments Right: Hip [employer] [id number] 10/25/2029 [id number] / 0 / [id number] [employer] [id number] Trilogy 6.5mm 40mm Self Tap Hip Acetabular Cortical Screw Bone - S0 - [id number] Implanted:Qty: 1 on 11/08/2020 by Will Salguero MD at [facility] Screw Right: Hip [employer] [id number] 03/02/2030 [id number] / 0 / [id number] Procedures Procedure Name Priority Date/Time Associated Diagnosis Comments EGFR Routine 07/09/2024 8:11 AM MOUNTER SOUSAPHONES Psoriatic arthritis (HCC) DIFFERENTIAL AUTO Routine 07/09/2024 8:1 1 AM MOUNTER SOUSAPHONES Psoriatic arthritis (HCC) CBC WITH AUTO DIFFERENTIAL Routine 07/09/2024 8:11 AM MOUNTER SOUSAPHONES Psoriatic arthritis (HCC) COMPREHENSIVE METABOLIC PANEL Routine 07/09/2024 8:11 AM MOUNTER SOUSAPHONES Psoriatic arthritis (HCC) ERYTHROCYTE SEDIMENTATION RATE Routine 07/09/2024 8:11 AM MOUNTER SOUSAPHONES Psoriatic arthritis (HCC) CRP (ACUTE PHASE) Routine 07/09/2024 8:1 1 AM MOUNTER SOUSAPHONES Psoriatic arthritis (HCC) HEPATITIS C ANTIBODY Routine 03/26/2024 9:13 AM CDT Psoriatic arthritis (HCC) from Last 3 Months or Most Recently Relevant to Health Maintenance Results * eGFR (07/09/2024 8:11 AM MOUNTER SOUSAPHONES) eGFR 86 >=60 mL/min/1. 73 m2 Comment: Interpretive Data Reference Interval Normal >/= 90 mL/min/1.73m2 Mildly decreased* 60 - 89 mL/min/1.73m2 Mildly to moderately decreased 45 - 59 mL/min/1.73m2 Moderately to severely decreased 30 - 44 mL/min/1.73m2 Severely decreased 15 - 29 mL/min/1.73m2 Kidney Failure < 15 mL/min/1.73m2 *Relative to young adult level Estimated glomerular filtration rate is determined by the 2020 CKD-EPI equation recommended by the National Kidney Foundation (A Unifying Approach to GFR Estimation: Recommendations of the NKF-ASK Task Force on Reassessing the Inclusion of Race in Diagnosing Kidney Disease, JASN 202). The CKD-EPI equation should not be used for patients with unstable renal function and has not been validated in children and those over 70. Current interpretive data was last reviewed 2021. Blood 07/09/2024 8:11 AM MOUNTER SOUSAPHONES 07/09/2024 9:40 AM MOUNTER SOUSAPHONES us Ciara Minor MD LAB BLOOD ORDERABLES F inal Result [facility] Department [place] [address] * (ABNORMAL) Differential, auto (07/09/2024 8:11 AM MOUNTER SOUSAPHONES) Neutrophil abs 3.5 1.5 - 6.5 K/cumm Imm gran abs 0.0 0.0 - 0.1 K/cumm [facility] Lymphocyte abs 1.5 0.8 - 3.3 K/cumm [facility] Monocyte abs 0.7 0.2 - 0.8 K/cumm [facility] Eosinophil abs 0.7(H) 0.0 - 0.5 K/cumm [facility] Basophil abs 0.1 0.0 - 0.1 K/cumm [facility] Neutrophil pct 54.0 % [facility] Comment: Interpretive Data Percent cell count reference ranges are not reported, since discordance with absolute values may lead to misinterpretation of CBC data. Current Interpretive Data was last revised on 2017. Imm gran pct 0.2 % [facility] Comment: Interpretive Data Percent cell count reference ranges are not reported, since discordance with absolute values may lead to misinterpretation of CBC data. Current Interpretive Data was last revised on 2017. Lymphocyte pct 22.8 % [facility] Comment: Interpretive Data Percent cell count reference ranges are not reported, since discordance with absolute values may lead to misinterpretation of CBC data. Current Interpretive Data was last revised on 2017. Monocyte pct 10.9 % [facility] Comment: Interpretive Data Percent cell count reference ranges are not reported, since discordance with absolute values may lead to misinterpretation of CBC data. Current Interpretive Data was last revised on 2017. Eosinophil pct 10.9 % [facility] Comment: Interpretive Data Percent cell count reference ranges are not reported, since discordance with absolute values may lead to misinterpretation of CBC data. Current Interpretive Data was last revised on 2017. Basophil pct 1.2 % [facility] Comment: Interpretive Data Percent cell count reference ranges are not reported, since discordance with absolute values may lead to misinterpretation of CBC data. Current Interpretive Data was last revised on 2017. Blood 07/09/2024 8:11 AM MOUNTER SOUSAPHONES 07/09/2024 9:35 AM MOUNTER SOUSAPHONES Ciara Minor MD LAB BLOOD ORDERABLES F inal Result [facility] [place] [address] * CBC with auto differential (07/09/2024 8:11 AM MOUNTER SOUSAPHONES) WBC 6.5 3.8 - 9.9 K/cumm Hgb 12.9 11.9 - 15.5 g/dL [facility] Hct 39.4 35.6 - 45.5 % [facility] Plt 303 150 - 400 K/cumm [facility] MPV 11.1 9.1 - 12.3 fL [facility] RBC 4.49 3.90 - 5.20 M/cumm [facility] MCV 87.8 81.3 - 96.4 fL [facility] MCH 28.7 27.1 - 33.3 pg [facility] MCHC 32.7 32.3 - 35.7 g/dL [facility] RDW CV 14.0 11.1 - 14.9 % [facility] RDW SD 44.6 35.7 - 48.1 fL [facility] NRBC abs 0.00 0.00 - 0.01 K/cumm [facility] Blood 07/09/2024 8:11 AM MOUNTER SOUSAPHONES 07/09/2024 9:35 AM MOUNTER SOUSAPHONES Ciara Minor MD LAB BLOOD ORDERABLES F inal Result [facility] Department [place] [address] * Erythrocyte sedimentation rate (07/09/2024 8:11 AM MOUNTER SOUSAPHONES) [facility] Erythrocyte sedimentation rate 18 1 - 30 mm/hr Blood 07/09/2024 8:11 AM MOUNTER SOUSAPHONES 07/09/2024 9:35 AM MOUNTER SOUSAPHONES Ciara Minor MD LAB BLOOD ORDERABLES F inal Result Performing Organization Address City/[facility] Co de Phone Number [facility] Department [place] [address] * CRP (acute phase) (07/09/2024 8:11 AM MOUNTER SOUSAPHONES) [facility] CRP 0.9 <=10.0 mg/L Blood 07/09/2024 8:11 AM MOUNTER SOUSAPHONES 07/09/2024 9:35 AM MOUNTER SOUSAPHONES Ciara Minor MD LAB BLOOD ORDERABLES F inal Result Performing Organization Address City/[facility] Co de Phone Number [facility] [place] [address] * Comprehensive metabolic panel (07/09/2024 8:11 AM MOUNTER SOUSAPHONES) [facility] Sodium 141 135 - 145 mmol/L Potassium, pl 4.8 3.3 - 4.9 mmol/L [facility] Chloride 106 97 - 110 mmol/L [facility] CO2 30 22 - 32 mmol/L [facility] Anion gap 5 2 - 15 mmol/L [facility] BUN 14 6 - 25 mg/dL [facility] Creatinine 0.76 0.60 - 1.10 mg/dL [facility] Glucose 81 70 - 199 mg/dL [facility] Comment: Interpretive Data Fasting glucose >/= 126 mg/dl is diagnostic for diabetes. Fasting is defined as no caloric intake for at least 8 hours. Fasting glucose between 100 mg/dl to 125 mg/dl is diagnostic of prediabetes. In a patient with classic symptoms of hyperglycemia or hyperglycemic crisis, a random glucose >/= 200 mg/dl is diagnostic for diabetes. In the absence of unequivocal hyperglycemia, results should be confirmed by repeat testing. The classification and Diagnosis of Diabetes Diabetes Care 2021; 46: S19-S40. Current interpretive data was last revised 2022. Calcium 10.1 8.5 - 10.3 mg/dL [facility] Bilirubin, total 0.3 0.1 - 1.2 mg/dL [facility] Protein, pl 6.9 6.5 - 8.5 g/dL [facility] Albumin 4.3 3.5 - 5.0 g/dL [facility] Alk phos 126 40 - 130 Units/L [facility] ALT 14 7 - 45 Units/L [facility] AST 21 10 - 45 Units/L [facility] Blood 07/09/2024 8:11 AM MOUNTER SOUSAPHONES 07/09/2024 9:35 AM MOUNTER SOUSAPHONES Ciara Minor MD LAB BLOOD ORDERABLES F inal Result Performing Organization Address City/[facility]/ZIP Co de Phone Number [facility] Department [place] [address] * Hepatitis C antibody Blood (03/26/2024 9:13 AM CDT) Hep C Ab Nonreactive Nonreactive Comment:Antibodies to HCV no t detected. Does NOT exclude the possibility of recent exposure to HCV. Current interpretive data was last revised on 22 Blood 03/26/2024 9:13 AM CDT 03/26/2024 10:01 AM CDT Ciara Minor MD LAB MICROBIOLOGY - GEN ERAL ORDERABLES Final Result Performing Organization Address City/[facility]/ZIP Co de Phone Number [facility] Department [place] [address] from Last 3 Months or Most Recently Relevant to Health Maintenance Insurance [facility] MEDICARE [facility] CHOICE PLUS MEDICARE [facility] Address: [address] [address] [place] [address] [facility] Advance Directives For more information, please contact: [phone] Documents on File Type Date Recorded Patient Regulator Operator Expl anation ADVANCE DIRECTIVE 07/31/2022 11:28 AM [employer] * Full Code (Latest Code Status on File) Date Activated Date Inactivated Comments 11/19/2022 7:29 AM 11/20/2022 5:24 AM * Full Code Date Activated Date Inactivated Comments 11/08/2020 12:53 PM 11/10/2020 8:47 PM Care Teams Floor Trader Relationship Specialty Start Date End Date Judd Woodson MD PCP - General Family Medicine 11/05/18 Emily Hinton NP [address] [place] [address] Nurse Practitioner Qa Consultant 10/09/22 Brian Woo MD [address] [place] [address] Consulting Physician Neurosurgery 11/01/22 [facility] Physical Therapist 07/21/22
--- OUTSIDE RECORDS SUMMARY | 2024-09-09 00:35 | XMS_ITS | Referral Summary ---
Author Organization [facility] Address [address] [place] [address] Care Team Providers Care Prize Fighter Name Role Phone Judd Woodson MD Primary Care Provider [phone] Emily Hinton NP Unavailable Brian Woo MD Unavailable [phone] Encounters Date Type Department Care Team Description 09/07/2024 8:30 AM ACTIVITIES COORDINATOR Infusion [facility] [address] [place] [phone] Psoriatic arthritis (HCC) (Primary Dx) 09/07/2024 10:30 AM ACTIVITIES COORDINATOR Office Visit [facility] [address] 8th [place] [address] [place] [phone] Alexx Curry Chi, MD Pulmonary infiltrates (Primary Dx) 08/06/2024 9:00 AM ACTIVITIES COORDINATOR Infusion [facility] [address] [place] [phone] Psoriatic arthritis (HCC) (Primary Dx) 07/09/2024 9:10 AM ACTIVITIES COORDINATOR Lab [facility] [address] [place] [address] Psoriatic arthritis (HCC) 07/09/2024 Telephone [facility] [address] [facility] Advanced Medicine 5th [place] [address] [place] [address] Ciara Minor MD 07/09/2024 9:30 AM ACTIVITIES COORDINATOR Infusion [facility] [address] [place] [phone] Psoriatic arthritis (HCC) (Primary Dx) 07/09/2024 8:30 AM ACTIVITIES COORDINATOR Office Visit [facility] [address] [place] [address] Advanced Medicine 5th [place] [address] [place] [address] Ciara Minor MD Psoriatic arthritis (HCC) (Primary Dx) 06/23/2024 Orders Only [facility] [address] [place] [address] [place] [phone] Sadie Roberson RN 06/10/2024 Telephone [facility] [address] [place] [address] 5th [place] [address] [place] [phone] Ciara Minor MD from Last 3 Months Allergies Active Allergy Reactions Criticality Noted Date [...] (10/28/2022): Added automatically from request for surgery [id number] Mycobacterium infection 08/13/2022 Assessment & Plan (10/11/2022 2:32 PM CDT): - positive for mycobacterium avium infection, susceptibilities are scanned into [employer]. - Continue Assessment & Plan (08/13/2022 10:30 AM ACTIVITIES COORDINATOR): - opt for treatment of mycobacterium avium [...] (05/28/2022): Added automatically from request for surgery [id number] Neuroforaminal stenosis of lumbar spine 05/28/20 Overview (05/28/2022): Added automatically from request for surgery [id number] Pulmonary infiltrates 05/27/2022 Primary osteoarthritis of right hip 07/26/2020 Overview (07/26/2020): Added automatically from request for surgery [id number] Sacroiliac joint dysfunction of right side 06/12 COPD (chronic obstructive pulmonary disease) MDD (major depressive disorder) 02/08/2019 Hypothyroid 02/08/2019 Osteoarthritis 02/08/2019 Lung nodule Immunizations Immunization Administration Dates Next Due COVID-19 mRNA ([email or web address]) 0.3 m L (30 mcg) vaccine (12 years and up) 05/17/2024 Influenza, Quadrivalent, Hig h Dose, Preservative Free, Intrr 05/01/2021,05/02/2020 Influenza, Quadrivalent, Spl it, Preservative Free, Intramuscular 06/06/2022,04/16/2019,04/14/2019 Influenza, Trivalent, Preser vative Free, Intramuscular 05/17/2024 Influenza, Unspecified 04/25/2023 [employer] SARS-CoV-2 Monovalent Vaccination (12+ Yrs) LU-READY TO USE 11/30/2021 Pneumococcal Conjugate PCV 13 02/18/2019 Pneumococcal Polysaccharide PPV23 07/23/2019 RSV Vaccine, Pref, Recombina nt, Subunit, Adjuvanted, PF, IM (Arexvy) 07/29/2023 ZOSTER Recombinant 06/09/2020,03/10/2020 Social History Tobacco Use Types Packs/Day Years [...] on file Legal Sex Female 6:49 PM ACTIVITIES COORDINATOR Gender Identity Female 09/13/2020 6:20 AM ACTIVITIES COORDINATOR Sexual Orientation Not on file Last Filed Vital Signs Vital Sign Reading Time Taken Comments Blood Pressure 155/90 09/07/2024 10:30 AM ACTIVITIES COORDINATOR Patient just had infusion Pulse 60 09/07/2024 10:30 AM ACTIVITIES COORDINATOR Temperature 35.9 C (96.7 F) 09/07/2024 10:30 AM ACTIVITIES COORDINATOR Respiratory Rate 18 09/07/2024 10:3 0 AM ACTIVITIES COORDINATOR Oxygen Saturation 97% 09/07/2024 10: 30 AM ACTIVITIES COORDINATOR Inhaled Oxygen Concentration - - Weight 83.8 kg (184 lb 12.8 oz) 09/07/2024 10:30 AM ACTIVITIES COORDINATOR Height 162.6 cm (5' 4 ) 09/07/2024 10:3 0 AM ACTIVITIES COORDINATOR Body Mass Index 31.72 09/07/2024 10:30 AM ACTIVITIES COORDINATOR Plan of Treatment Not on file Goals Goal Patient Goal Type Associated Problems [...] as needed Medical Devices Implanted Type Area Certified Ophthalmic Medical Technician Device Identifier Shelf Expiration Date Model / Serial / Lot [employer] [id number] 50mm Limit 3 Hole Hip D Hemisphere Offset Shell Acetabular - S0 - [id number] Implanted:Qty: 1 on 11/08/2020 by Will Salguero MD at [facility] Other - see comments Right: Hip [employer] [id number] 03/19/2030 [id number] / 0 / [id number] [employer] [id number] 36mm Lumen Hip D Liner Acetabular Longevity Sterile Latex Free - S0 - [id number] Implanted:Qty: 1 on 11/08/2020 by Will Salguero MD at [facility] Other - see comments Right: Hip [employer] [id number] 06/13/[id number] / 0 / [id number] [employer] [id number] Taperloc 144mm Type 1 Press Fit Reduce Hip 133d 12 Standard - S0 - [id number] Implanted:Qty: 1 on 11/08/2020 by Will Salguero MD at [facility] Other - see comments Right: Hip [employer] [id number] 11/16/2029 [id number] / 0 / [id number] [employer] 650-0660 G7 36mm Type 1 Modular Hip Acetabular -3mm Offset Head Femoral - S0 - [id number] Implanted:Qty: 1 on 11/08/2020 by Will Salguero MD at [facility] Other - see comments Right: Hip [employer] [id number] 10/25/2029 [id number] / 0 / [id number] [employer] [id number] Trilogy 6.5mm 40mm Self Tap Hip Acetabular Cortical Screw Bone - S0 - [id number] Implanted:Qty: 1 on 11/08/2020 by Will Salguero MD at [facility] Screw Right: Hip [employer] [id number] 03/02/2030 [id number] / 0 / [id number] Procedures Procedure Name Priority Date/Time Associated Diagnosis Comments EGFR Routine 07/09/2024 8:11 AM ACTIVITIES COORDINATOR Psoriatic arthritis (HCC) DIFFERENTIAL AUTO Routine 07/09/2024 8:1 1 AM ACTIVITIES COORDINATOR Psoriatic arthritis (HCC) CBC WITH AUTO DIFFERENTIAL Routine 07/09/2024 8:11 AM ACTIVITIES COORDINATOR Psoriatic arthritis (HCC) COMPREHENSIVE METABOLIC PANEL Routine 07/09/2024 8:11 AM ACTIVITIES COORDINATOR Psoriatic arthritis (HCC) ERYTHROCYTE SEDIMENTATION RATE Routine 07/09/2024 8:11 AM ACTIVITIES COORDINATOR Psoriatic arthritis (HCC) CRP (ACUTE PHASE) Routine 07/09/2024 8:1 1 AM ACTIVITIES COORDINATOR Psoriatic arthritis (HCC) HEPATITIS C ANTIBODY Routine 03/26/2024 9:13 AM CDT Psoriatic arthritis (HCC) from Last 3 Months or Most Recently Relevant to Health Maintenance Results * eGFR (07/09/2024 8:11 AM ACTIVITIES COORDINATOR) eGFR 86 >=60 mL/min/1. 73 m2 Comment: [...] of Race in Diagnosing Kidney Disease, JASN 2020). The CKD-EPI equation should not be used for patients with unstable renal function and has not been validated in children and those over 70. Current interpretive data was last reviewed 2021. Blood 07/09/2024 8:11 AM ACTIVITIES COORDINATOR 07/09/2024 9:40 AM ACTIVITIES COORDINATOR Ciara Minor MD LAB BLOOD ORDERABLES F inal Result [facility] [place] [address] * (ABNORMAL) Differential, auto (07/09/2024 8:11 AM ACTIVITIES COORDINATOR) Pathologist [facility] Neutrophil abs 3.5 1.5 - 6.5 K/cumm Imm gran abs 0.0 0.0 - 0.1 K/cumm [facility] Lymphocyte abs 1.5 0.8 - 3.3 K/cumm [facility] Monocyte abs 0.7 0.2 - 0.8 K/cumm [facility] Eosinophil abs 0.7(H) 0.0 - 0.5 K/cumm [facility] Basophil abs 0.1 0.0 - 0.1 K/cumm [facility] Neutrophil pct 54.0 % [facility] Comment: Interpretive Data Percent cell count reference ranges are not reported, since discordance with absolute values may lead to misinterpretation of CBC data. Current Interpretive Data was last revised on 2017. Imm gran pct 0.2 % [facility] Comment: Interpretive Data Percent cell count reference ranges are not reported, since discordance with absolute values may lead to misinterpretation of CBC data. Current Interpretive Data was last revised on 2017. Lymphocyte pct 22.8 % [facility] Comment: Interpretive Data Percent cell count reference ranges are not reported, since discordance with absolute values may lead to misinterpretation of CBC data. Current Interpretive Data was last revised on 2017. Monocyte pct 10.9 % [facility] Comment: Interpretive Data Percent cell count reference ranges are not reported, since discordance with absolute values may lead to misinterpretation of CBC data. Current Interpretive Data was last revised on 2017. Eosinophil pct 10.9 % [facility] Comment: Interpretive Data Percent cell count reference ranges are not reported, since discordance with absolute values may lead to misinterpretation of CBC data. Current Interpretive Data was last revised on 2017. Basophil pct 1.2 % [facility] Comment: Interpretive Data Percent cell count reference ranges are not reported, since discordance with absolute values may lead to misinterpretation of CBC data. Current Interpretive Data was last revised on 2017. Blood 07/09/2024 8:11 AM ACTIVITIES COORDINATOR 07/09/2024 9:35 AM ACTIVITIES COORDINATOR Ciara Minor MD LAB BLOOD ORDERABLES F inal Result [facility] [address] [facility] [place] [address] * CBC with auto differential (07/09/2024 8:11 AM ACTIVITIES COORDINATOR) WBC 6.5 3.8 - 9.9 K/cumm Hgb 12.9 11.9 - 15.5 g/dL [facility] Hct 39.4 35.6 - 45.5 % [facility] Plt 303 150 - 400 K/cumm [facility] MPV 11.1 9.1 - 12.3 fL [facility] RBC 4.49 3.90 - 5.20 M/cumm [facility] MCV 87.8 81.3 - 96.4 fL [facility] MCH 28.7 27.1 - 33.3 pg [facility] MCHC 32.7 32.3 - 35.7 g/dL [facility] RDW CV 14.0 11.1 - 14.9 % [facility] RDW SD 44.6 35.7 - 48.1 fL [facility] NRBC abs 0.00 0.00 - 0.01 K/cumm [facility] Blood 07/09/2024 8:11 AM ACTIVITIES COORDINATOR 07/09/2024 9:35 AM ACTIVITIES COORDINATOR Ciara Minor MD LAB BLOOD ORDERABLES F inal Result Performing Organization Address City/[facility] Co de Phone Number [facility] [place] [address] * Erythrocyte sedimentation rate (07/09/2024 8:11 AM ACTIVITIES COORDINATOR) Pathologist [facility] Erythrocyte sedimentation rate 18 1 - 30 mm/hr Blood 07/09/2024 8:11 AM ACTIVITIES COORDINATOR 07/09/2024 9:35 AM ACTIVITIES COORDINATOR Ciara Minor MD LAB BLOOD ORDERABLES F inal Result Performing Organization Address [facility] de Phone Number [facility] [place] [address] * CRP (acute phase) (07/09/2024 8:11 AM ACTIVITIES COORDINATOR) Pathologist [facility] CRP 0.9 <=10.0 mg/L Blood 07/09/2024 8:11 AM ACTIVITIES COORDINATOR 07/09/2024 9:35 AM ACTIVITIES COORDINATOR Ciara Minor MD LAB BLOOD ORDERABLES F inal Result Performing Organization Address [facility] Co de Phone Number [facility] [place] [address] * Comprehensive metabolic panel (07/09/2024 8:11 AM ACTIVITIES COORDINATOR) Pathologist [facility] Sodium 141 135 - 145 mmol/L Potassium, pl 4.8 3.3 - 4.9 mmol/L [facility] Chloride 106 97 - 110 mmol/L [facility] CO2 30 22 - 32 mmol/L [facility] Anion gap 5 2 - 15 mmol/L [facility] BUN 14 6 - 25 mg/dL [facility] Creatinine 0.76 0.60 - 1.10 mg/dL [facility] Glucose 81 70 - 199 mg/dL [facility] Comment: Interpretive Data Fasting glucose >/= 126 [...] classification and Diagnosis of Diabetes Diabetes Care 202; 46: S19-S40. Current interpretive data was last revised 2022. Calcium 10.1 8.5 - 10.3 mg/dL [facility] Bilirubin, total 0.3 0.1 - 1.2 mg/dL [facility] Protein, pl 6.9 6.5 - 8.5 g/dL [facility] Albumin 4.3 3.5 - 5.0 g/dL [facility] Alk phos 126 40 - 130 Units/L [facility] ALT 14 7 - 45 Units/L [facility] AST 21 10 - 45 Units/L [facility] Blood 07/09/2024 8:11 AM ACTIVITIES COORDINATOR 07/09/2024 9:35 AM ACTIVITIES COORDINATOR Ciara Minor MD LAB BLOOD ORDERABLES F inal Result [facility] [place] [address] * Hepatitis C antibody Blood (03/26/2024 9:13 AM CDT) Hep C Ab Nonreactive Nonreactive Comment:Antibodies to HCV no t detected. Does NOT exclude the possibility of recent exposure to HCV. Current interpretive data was last revised on 22 Blood 03/26/2024 9:13 AM CDT 03/26/2024 10:01 AM CDT Ciara Minor MD LAB MICROBIOLOGY - GEN ERAL ORDERABLES Final Result [facility] [place] [address] from Last 3 Months or Most Recently Relevant to Health Maintenance Insurance [facility] CHOICE PLUS [place] MEDICARE [facility] CHOICE PLUS MEDICARE [facility] Address: [facility] [address] [place] [address] [facility] Advance Directives For more information, please contact: [phone] Documents on File Type Date Recorded Patient Hunting Sales Leader Expl anation ADVANCE DIRECTIVE 07/31/2022 11:28 AM [employer] PSYCHOLOGIST-MEDICAL * Full Code (Latest Code Status on File) Date Activated Date Inactivated Comments 11/19/2022 7:29 AM 11/20/2022 5:24 AM * Full Code Date Activated Date Inactivated Comments 11/08/2020 12:53 PM 11/10/2020 8:47 PM Care Teams Prize Fighter Relationship Specialty Start Date End Date Judd Woodson MD PCP - General Family Medicine 11/05/18 Emily Hinton NP [address] [place] [address] Nurse Practitioner Host Coordinator 10/09/22 Brian Woo MD [address] [place] [address] Consulting Physician Neurosurgery 11/01/22 [facility] - Outpatient Therapy Physical Therapist 07/21/22
--- OUTSIDE RECORDS SUMMARY | 2024-09-09 00:35 | XMS_ITS | Encounter Summary ---
Author Organization [facility] Address [address] [place] [address] Phone Care Team Providers Care Remedy Developer Name Role Phone Judd Woodson MD Primary Care Provider [phone] Emily Hinton NP Unavailable [phone] Brian Woo MD Unavailable [phone] Encounter Details Date Type Department Care Team (Late st Contact Info) Description 12/12/2020 Documentation [facility] Orthopaedic Surgery [address] [facility] Advanced Medicine 6th [place] [address] [place] [address] Fritz Mendiola RN Social History Tobacco Use Types Packs/Day Years [...] on file Legal Sex Female 6:49 PM TRAFFIC DIVISION COMMANDING OFFICER Gender Identity Female 09/13/2020 6:20 AM TRAFFIC DIVISION COMMANDING OFFICER Sexual Orientation Not on file documented as [...] Infection Onset Date Last Indicated Resolved Time COVID: Recovered Comment:Patient tested COVID + on 07/04/20, last date of Symptoms was 07/13/20, Patient did not require hospitalization/ICU or O2 during COVID infection. Labs results scanned in Photogram[employer] Engineer. Patient is COVID Recovered on 07/15/20. 07/15/2020 09/04/2020 01/02/2021 3:05 AM CDT Tuberculosis (rule out) Comment:06/04/2022 growing Mycobacterium aviuim. Nichol Snowden RN 05/30/2022 BAL on 05/20 growing AFB, no previous positive labs. Nichol Snowden RN 05/30/2022 05/30/2022 06/04/2022 9:[address] documented as of this encounter Care Teams Remedy Developer Relationship Specialty Start Date End Date Judd Woodson MD PCP - General Family Medicine 11/05/18 Emily Hinton NP [address] [place] [address] Nurse Practitioner Packaging Inspector 10/09/22 Brian Woo MD [address] [place] [address] Consulting Physician Neurosurgery 11/01/22 [facility] - Outpatient Therapy Physical Therapist 07/21/22 documented as of this encounter
--- OUTSIDE RECORDS SUMMARY | 2024-09-09 00:35 | XMS_ITS | Encounter Summary ---
Author Organization [facility] Address [address] [place] [address] Care Team Providers Care Refractive Surgeon Name Role Phone Judd Woodson MD Primary Care Provider [phone] Emily Hinton NP Unavailable [phone] Brian Woo MD Unavailable [phone] Encounter Details Date Type Department Care Team (Late st Contact Info) Description 11/13/[address] [facility] Radiology [facility] [address] [place] [address] Mario Souza RN Social History Tobacco Use Types Packs/Day Years Used Date Smoking Tobacco: Former Cigarettes 0.5 28 1 972 - 2000 Smokeless Tobacco: Never Alcohol Use Standard Drinks/Week Comments Yes 0 (1 standard drink = 0.6 oz pur e alcohol) rare AUDIT-C Answer Date Recorded Frequency of Alcohol Consumption Not on file 10/17/2022 Q2: How many drinks containi ng alcohol do you have on a typical day when you are drinking? Patient does not drink Frequency of Binge Drinking Not on file 09/20 Comments No Sex and Gender Information Value Date Recorded Sex Assigned at Not on file Legal Sex Female 6:49 PM TILER'S ASSISTANT Gender Identity Female 09/13/2020 6:20 AM TILER'S ASSISTANT Sexual Orientation Not on file COVID-19 Exposure Response Date Recorded In the last 10 days, have yo u been in contact with someone who was confirmed or suspected to have Coronavirus/COVID-19? No / Unsure 11/15/2022 10:11 AM CDT documented as of this encounter Plan of [...] on filedocumented in this encounter Care Teams Refractive Surgeon Relationship Specialty Start Date End Date Judd Woodson MD PCP - General Family Medicine 11/05/18 Emily Hinton NP [address] [place] [address] Nurse Practitioner Neuropathologist 10/09/22 Brian Woo MD [address] [place] [address] Consulting Physician Neurosurgery 11/01/22 [facility] [place] [place] - Outpatient Therapy Physical Therapist 07/21/22 documented as of this encounter
[2024-09-09 08:35] VITALS: BP 147/87; PULSE 87; RESP 16; TEMP 36.2; O2SAT 100
--- NOTE | 2024-09-09 08:46 | WPDANESEPPF ---
Anes - Initial Pre Proc Eval Procedure: Operation Date: 09/09/24 09:45 Proposed Procedures p Colonoscopy - J Luis Dorman MD Date/Time: 09/09/24 08:46 Surgeon: J Luis Dorman MD Pre Op Diagnosis: Personal hx of colon polyps Patient Data Age: 64 Gender: F Height: 1.63 m Weight: 79.3 kg Last Vital Signs Temp 97.2 F L 09/09/24 08:35 Pulse 87 09/09/24 08:35 Resp 16 09/09/24 08:35 BP 147/87 H 09/09/24 08:35 Pulse Ox 100 09/09/24 08:35 O2 Del Method Room Air 09/09/24 08:35 Allergies Allergy/AdvReac Type Severity Reaction Status Date / Time amoxicillin Allergy Mild Rash Verified 09/09/24 08:32 codeine Allergy Unknown Unknown Verified 09/09/24 08:32 tramadol Allergy Unknown Cough Verified 09/09/24 08:32 gabapentin AdvReac Mild Nausea Verified 09/09/24 08:32 hydrocodone AdvReac Mild NAUSEA AND Verified 09/09/24 08:32 VOMITING Home Medications ?Medication ?Instructions ?Recorded ?Confirmed ?Type leflunomide 20 mg tablet 20 mg PO DAILY 07/23/19 09/09/24 History gblhvueh-qiv-jfpu-FA-Ca carb-vit K 18 tablet PO DAILY 02/21/20 09/09/24 History 18 mg iron-400 mcg-500 mg tablet (Women's Multivitamin) acetaminophen 650 mg 650 mg PO Q12H 02/22/22 09/09/24 History tablet,extended release (Tylenol Arthritis Pain) magnesium oxide 400 mg PO DAILY 10/30/22 09/09/24 History celecoxib 200 mg capsule 200 mg PO Q24H 06/03/24 09/09/24 History fluticasone propionate 50 1 spray intranasal Q12H 06/03/24 09/09/24 History mcg/actuation nasal spray,suspension halobetasol propionate 0.05 % 1 applic topical DAILY 06/03/24 09/09/24 History topical cream secukinumab 25 mg/mL intravenous 125 mg IV MONTHLY 06/03/24 09/09/24 History solution (Cosentyx) levothyroxine 112 mcg tablet 112 mcg PO DAILY #90 tabs 06/23/24 09/09/24 Rx citalopram 20 mg tablet (Celexa) 20 mg PO DAILY #90 tabs 07/15/24 09/09/24 Rx loratadine 10 mg tablet (Claritin) 10 mg PO DAILY 08/05/24 09/09/24 History metoprolol succinate 25 mg See Rx Instructions .Route 08/30/24 09/09/24 Rx tablet,extended release 24 hr .COMPLEX #90 tabs Patient hx anesthesia problems: none Family hx anesthesia problems: none Results Review: All pre-operative results and documents have been reviewed as part of the pre-operative evaluation. [facility] Past Medical History Medical History Basal cell carcinoma removed at [employer] office 06/2023 Leg length difference, acquired Coxa vara (acquired) Arthritis of right hip Overweight (BMI 25.0-29.9) Chronic obstructive pulmonary disease Psoriatic arthritis COVID-19 Colon polyp Hypothyroidism (acquired) Pulmonary emphysema Systemic lupus erythematosus Surgical History Surgical History History of arthroplasty of right hip Family History Family History Mother Hypertension Father Cerebrovascular accident Family history of dementia Social History Social History Smoking packs per day: 1 Smoking cigarettes per day: 20.0 Years smoked: 15 Smoking pack-years: 15.00 Smoking status: Former smoker Tobacco type: cigarettes Second hand tobacco smoke exposure: No Smoking end date: 07/21/97 Alcohol intake: never Substance use: never Substance use type: does not use Lack of Transportation: No Lack of Food: Never True Current Housing: I Have Housing Concerned About Future Housing: No Difficulty Paying Gas/Electric Bills: No Difficulty Paying for Meds: No Currently Unemployed: No Education: Associate Degree Difficulty w/ Childcare or Family Care: No Living arrangements: with family Gender identity (if verbalized by the patient): Female Spiritual care concerns: No Anes - Eval Final PreProcedure Day of Procedure 09/09/24 08:46 Patient weight: overweight Lungs: normal air movement Airway: Mallampati scale and special considerations (Upper and lower perm bridges. ) Neurological: alert and oriented Last oral intake: >/= 8 hours ASA classification: II Emergent: no Anesthetic plan: proceed Anesthesia type and monitoring: general GIVS and standard monitoring Results Review: All pre-operative results and documents have been reviewed as part of the pre-operative evaluation. Hypothyoridism, SLE, COPD but pt reports ex smoker, quit approx , pulmon released her from care w her visit yest. Informed Consent: The patient's anesthetic plan and its attendant risks and benefits were discussed with the patient/family/POA. Questions were solicited and answers provided to the satisfaction of the patient/family/POA.
[2024-09-09] MEDS: LACTATED RINGERS 1,000 ML 150 ML IV CONT (08:53)
--- NOTE | 2024-09-09 09:37 | P.HP_ITS ---
H&P: HPI History of Present Illness Date/Time: 09/09/24 09:37 Chief Complaint: History of colon polyps Narrative: The patient has a history of colonic polyps, the last colonoscopy was more than 5 years ago. Review of Systems Review of Systems: All systems reviewed & are unremarkable except as noted in HPI and below PMFSH Past Medical History Medical History Basal cell carcinoma removed at [employer] Equipment [employer] office 06/2023 Leg length difference, acquired Coxa vara (acquired) Arthritis of right hip Overweight (BMI 25.0-29.9) Chronic obstructive pulmonary disease Psoriatic arthritis COVID-19 Colon polyp Hypothyroidism (acquired) Pulmonary emphysema Systemic lupus erythematosus Surgical History Surgical History History of arthroplasty of right hip Family History Family History Mother Hypertension Father Cerebrovascular accident Family history of dementia Social History Social History Smoking packs per day: 1 Smoking cigarettes per day: 20.0 Years smoked: 15 Smoking pack-years: 15.00 Smoking status: Former smoker Tobacco type: cigarettes Second hand tobacco smoke exposure: No Smoking end date: 07/21/97 Alcohol intake: never Substance use: never Substance use type: does not use Lack of Transportation: No Lack of Food: Never True Current Housing: I Have Housing Concerned About Future Housing: No Difficulty Paying Gas/Electric Bills: No Difficulty Paying for Meds: No Currently Unemployed: No Education: Associate Degree Difficulty w/ Childcare or Family Care: No Living arrangements: with family Gender identity (if verbalized by the patient): Female Spiritual care concerns: No Meds Home Medications and Allergies Home Medications ?Medication ?Instructions ?Recorded ?Confirmed ?Type leflunomide 20 mg tablet 20 mg PO DAILY 07/23/19 09/09/24 History zsuxiirc-iov-vsen-FA-Ca carb-vit K 18 tablet PO DAILY 02/21/20 09/09/24 History 18 mg iron-400 mcg-500 mg tablet (Women's Multivitamin) acetaminophen 650 mg 650 mg PO Q12H 02/22/22 09/09/24 History tablet,extended release (Tylenol Arthritis Pain) magnesium oxide 400 mg PO DAILY 10/30/22 09/09/24 History celecoxib 200 mg capsule 200 mg PO Q24H 06/03/24 09/09/24 History fluticasone propionate 50 1 spray intranasal Q12H 06/03/24 09/09/24 History mcg/actuation nasal spray,suspension halobetasol propionate 0.05 % 1 applic topical DAILY 06/03/24 09/09/24 History topical cream secukinumab 25 mg/mL intravenous 125 mg IV MONTHLY 06/03/24 09/09/24 History solution (Cosentyx) levothyroxine 112 mcg tablet 112 mcg PO DAILY #90 tabs 06/23/24 09/09/24 Rx citalopram 20 mg tablet (Celexa) 20 mg PO DAILY #90 tabs 07/15/24 09/09/24 Rx loratadine 10 mg tablet (Claritin) 10 mg PO DAILY 08/05/24 09/09/24 History metoprolol succinate 25 mg See Rx Instructions .Route 08/30/24 09/09/24 Rx tablet,extended release 24 hr .COMPLEX #90 tabs Allergies Allergy/AdvReac Type Severity Reaction Status Date / Time amoxicillin Allergy Mild Rash Verified 09/09/24 08:32 codeine Allergy Unknown Unknown Verified 09/09/24 08:32 tramadol Allergy Unknown Cough Verified 09/09/24 08:32 gabapentin AdvReac Mild Nausea Verified 09/09/24 08:32 hydrocodone AdvReac Mild NAUSEA AND Verified 09/09/24 08:32 VOMITING Vital Signs Vital Signs - 24 hr 09/09/24 08:35 Temperature 97.2 F L Pulse Rate 87 Respiratory Rate 16 Blood Pressure 147/87 H Pulse Oximetry 100 Oxygen Delivery Room Air Exam Const: General: cooperative and healthy appearing Resp: Effort & Inspection: normal respiratory effort and able to speak in complete sentences Auscultation: clear to auscultation bilaterally Cardio: Rate: regular rate Rhythm: regular rhythm GI: Inspection: normal to inspection GI Palp: No No hepatosplenomegaly present Auscultation: normal bowel sounds Rectal Exam: deferred Skin: General skin exam: normal color Psych: Appearance: grossly normal Mental Status: mental status grossly normal Assessment and Plan Assessment and plan (1) Colon polyp: Code(s): K63.5 - Polyp of colon Status: Acute Assessment and Plan: The patient is deemed a good candidate for the procedure. Consent signed. Will proceed.
[2024-09-09 10:09] VITALS: BP 113/67; PULSE 64; RESP 14; O2SAT 100
[2024-09-09 10:19] VITALS: BP 115/66; PULSE 74; RESP 18; O2SAT 100
[2024-09-09 10:29] VITALS: BP 124/76; PULSE 65; RESP 16; O2SAT 100
== END 2024-09-09 10:42 | disposition home or self-care (01) ==
PROVIDERS: PCP Family Medicine; Referring Provider Family Medicine; Visit Provider Internal Medicine Gastroenterology
PROC: 0DJD8ZZ Inspection of Lower Intestinal Tract, Via Natural or Artificial Opening Endoscopic (ICD-10-PCS; CPT 45378; principal; 2024-09-09 09:45)
DX: Z12.11 Encounter for screening for malignant neoplasm of colon (principal); K57.30 Diverticulosis of large intestine without perforation or abscess without bleeding; E03.9 Hypothyroidism, unspecified; J43.9 Emphysema, unspecified; M16.11 Unilateral primary osteoarthritis, right hip; L40.50 Arthropathic psoriasis, unspecified; L93.0 Discoid lupus erythematosus; M21.859 Other specified acquired deformities of unspecified thigh; M21.70 Unequal limb length (acquired), unspecified site; Z98.890 Other specified postprocedural states; Z87.891 Personal history of nicotine dependence; Z86.0100 Personal history of colon polyps, unspecified; Z85.828 Personal history of other malignant neoplasm of skin; Z82.49 Family history of ischemic heart disease and other diseases of the circulatory system
CPT/HCPCS: G0105; J2704; J7120

== ENCOUNTER 2024-12-01 15:00 | Outpatient (CLI) | payer MEDICARE, OTHER, SELFPAY ==
--- NOTE | ~2024-12-01 | XR_ITS ---
[id number] 12/01/2024 15:25 Indication: Cervicalgia Procedure: 3 view cervical spine Comparison: No prior studies for comparison. Findings: Straightening of cervical lordosis. There is disc. C4-5, C5-6 and C6-7. There is degenerati ve anterolisthesis at C5-6 measuring 3-4 mm. Odontoid process is normal. Lateral masses are normally aligned. There is multilevel uncinate and facet hypertrophy. Impression: 1: Severe cervical spondylosis. Reviewed, dictated and finalized at location A. Impression: 1: Severe cervical spondylosis.
--- NOTE | ~2024-12-01 | XR_ITS ---
Right Shoulder Technique: AP and scapular Y views were obtained. Clinical History: Pain Findings: No fracture or dislocation is seen. Osseous alignment is anatomic. The glenohumeral and acr omioclavicular joint spaces are preserved. Soft tissues are unremarkable. Impression: Unremarkable right shoulder radiographs. Reviewed, dictated and finalized at [facility]. Impression: Unremarkable right shoulder radiographs.
--- OUTSIDE RECORDS SUMMARY | 2024-12-01 15:06 | XMS_ITS | Encounter Summary ---
Author Organization [facility] Address [address] [place] [address] Phone Care Team Providers Care Shipfitter Name Role Phone Judd Woodson MD Primary Care Provider [phone] Emily Hinton NP Unavailable Brian Woo MD Unavailable [phone] Encounter Details Date Type Department Care Team (Late st Contact Info) Description 07/02/2023 Documentation [facility] Dermatology [address] [facility] [address] [place] [address] Ky Ayala MD [address] [place] [address] Social History Tobacco Use Types Packs/Day Years [...] on file Legal Sex Female 6:49 PM [employer] Gender Identity Female 09/13/2020 6:20 AM [employer] Sexual Orientation Not on file documented as [...] on filedocumented in this encounter Care Teams Shipfitter Relationship Specialty Start Date End Date Judd Woodson MD PCP - General Family Medicine 11/05/18 Emily Hinton NP [address] [place] [address] Nurse Practitioner Motor Vehicle Assembler 10/09/22 Brian Woo MD [address] [address] Consulting Physician Neurosurgery 11/01/22 [facility] - Outpatient Therapy Physical Therapist 07/21/22 documented as of this encounter
--- OUTSIDE RECORDS SUMMARY | 2024-12-01 15:06 | XMS_ITS | Clinical Summary ---
Author Organization [facility] Address [address] [place] [address] Care Team Providers Care Commercial Driver Name Role Phone Judd Woodson MD Primary Care Provider [phone] Emily Hinton NP Unavailable Brian Woo MD Unavailable Allergies Active Allergy Reactions Criticality Noted Date [...] (10/28/2022): Added automatically from request for surgery [id number] Mycobacterium infection 08/13/2022 Assessment & Plan (10/11/2022 2:32 PM CDT): - positive for mycobacterium avium infection, susceptibilities are scanned into [email or web address]. - Continue Assessment & Plan (08/13/2022 10:30 AM PIZZA BAKER): - opt for treatment of mycobacterium avium [...] (05/28/2022): Added automatically from request for surgery [id number] Neuroforaminal stenosis of lumbar spine 05/28/20 Overview (05/28/2022): Added automatically from request for surgery [id number] Pulmonary infiltrates 05/27/2022 Primary osteoarthritis of right hip 07/26/2020 Overview (07/26/2020): Added automatically from request for surgery [id number] Sacroiliac joint dysfunction of right side 06/12 COPD (chronic obstructive pulmonary disease) MDD (major depressive disorder) 02/08/2019 Hypothyroid 02/08/2019 Osteoarthritis 02/08/2019 Lung nodule Encounters Date Type Department Care Team Description 11/30/2024 9:00 AM CDT Infusion [facility] [address] [place] [address] [address] [place] [phone] Psoriatic arthritis (HCC) (Primary Dx) 11/02/2024 8:30 AM CDT Infusion [facility] [address] [place] [address] [address] [place] [phone] Psoriatic arthritis (HCC) (Primary Dx) 11/01/2024 Orders Only [facility] [address] [place] [address] [address] [place] [phone] Guerita Zaman RN 10/28/2024 Telephone [facility] Rheumatology [address] [place] [address] Advanced Medicine 5th [place] [address] Ciara Minor MD 10/20/2024 Results Follow-Up [facility] Rheumatology [address] [facility] 5th [place] [address] [place] [address] Ciara Minor MD 10/19/2024 8:46 AM CDT - 10/19/2024 11:59 PM CDT Hospital Encounter [address] [address] Psoriatic arthritis (HCC) Discharge Disposition: Discharge to home or self care 10/19/2024 8:45 AM CDT Lab [facility] Endocrinology Metabolism and Lipid [address] [facility] 5th [place] [address] [place] [address] Psoriatic arthritis (HCC) 10/19/2024 8:00 AM CDT Office Visit [facility] Rheumatology [address] [facility] 5th [place] [address] [place] [address] Ciara Minor MD Psoriatic arthritis (HCC) (Primary Dx) 10/05/2024 9:00 AM CDT Infusion [facility] [address] [place] [address] Ave [address] [place] [address] Psoriatic arthritis (HCC) (Primary Dx) 09/10/2024 8:15 AM PIZZA BAKER Office Visit [facility] Orthopaedic Surgery [address] [facility] 6th [place] [address] [place] [address] Alonzo Jimenez MD Left hip pain (Primary Dx) 09/10/2024 7:45 AM PIZZA BAKER - 09/10/2024 11:59 PM PIZZA BAKER Hospital Encounter [facility] [address] [place] [address] Left hip pain Discharge Disposition: Discharge to home or self care 09/07/2024 10:30 AM PIZZA BAKER Office Visit [facility] Pulmonary [address] [facility] 8th [place] [address] [place] [address] Aelxx Curry Chi, MD Pulmonary infiltrates (Primary Dx) 09/07/2024 8:30 AM PIZZA BAKER Infusion [facility] [address] [place] [address] [address] [place] [address] Psoriatic arthritis (HCC) (Primary Dx) from Last 3 Months Immunizations Immunization Administration Dates Next Due COVID-19 mRNA ([employer]) 0.3 m L (30 mcg) vaccine (12 years and up) 05/17/2024 Influenza, Quadrivalent, Hig h Dose, Preservative Free, Intrr 05/01/2021,05/02/2020 Influenza, Quadrivalent, Spl it, Preservative Free, Intramuscular 06/06/2022,04/16/2019,04/14/2019 Influenza, Trivalent, Preser vative Free, Intramuscular 05/17/2024 Influenza, Unspecified 04/25/2023 [employer] SARS-CoV-2 Monovalent Vaccination (12+ Yrs) LU-READY TO [...] the money to buy more. Never true 11/03/19 25 Within the past 12 months, t he food you bought just didn't last and you didn't have money to get more. Never true 11/02/2024 Personal Safety Answer Date Recorded Have you ever been in or are you currently in a harmful physical or emotional relationship or is someone making you feel afraid or unsafe? Denies 11/30/2024 Comments No Sex and Gender Information Value Date Recorded Sex Assigned at Not on file Legal Sex Female 6:49 PM PIZZA BAKER Gender Identity Female 09/13/2020 6:20 AM PIZZA BAKER Sexual Orientation Not on file Obstetrics History Last Filed Vital Signs Vital Sign Reading Time Taken Comments Blood Pressure 167/86 11/30/2024 9:30 AM CDT Pulse 60 11/30/2024 9:30 AM CDT Temperature 36.1 C (96.9 F) 11/30/2024 8:26 AM CDT Respiratory Rate 18 11/02/2024 8:03 AM CDT Oxygen Saturation 99% 11/30/2024 9:30 AM CDT Inhaled Oxygen Concentration - - Weight 84.1 kg (185 lb 8 oz) 11/30/2024 8:26 AM CDT Height 162.6 cm (5' 4 ) 10/19/2024 8:01 AM CDT Body Mass Index 31.84 10/19/2024 8:01 AM CDT Plan of Treatment Health Maintenance Due Date Last Done Comments Breast Cancer Screening-Mammogram 1960 Colon Cancer Screening-Colonoscopy 1960 Depression Screening 1960 Osteoporosis Screening-Bone Density Scan 1960 DTaP/Tdap/Td Vaccine (1 - Tdap) 1969 Well Visit 65+ 2023 Fall Risk Assessment 11/20/2023 11/19/2022 Pneumococcal vaccine 65+ (3 of 3 - PCV20 or PCV21) 07/23/2024 07/23/2019, 02/18/2019 Covid-19 Vaccine (2023-2 5 season) 2024 05/17/2024, 11/30/2021, 04/09/2021, Additional history exists Zoster Vaccine Completed 06/09/2020, 03/10/2020 Hepatitis B Screening Completed 03/26/2024 Hepatitis C Screening Completed 03/26/2024 , 04/25/2023, 03/08/2022, Additional history exists Influenza Vaccine Completed 05/17/2024, , 06/06/2022, Additional history exists Goals Goal Patient Goal Type Associated Problems Recent Progress Patient-Stated? Author CCM Chronic Pain Care Plan Chronic Care Management No change(04/17 7:32 AM CDT) Noelle Chirinos, VERONICA Note: Problem: Chronic Pain Goals: 1. Minimize further functional decline 2. Maximize quality of life 3. Control pain Strategies: - Activity/exercise program recommendation - Conservative stepwise pain medicine strategy with multi-disciplinary approach - Recommend healthy lifestyle strategies and compensatory methods as needed Medical Devices Implanted Type Area Woodwork Teacher Device Identifier Shelf Expiration Date Model / Serial / Lot [employer] [id number] 50mm Limit 3 Hole Hip D Hemisphere Offset Shell Acetabular - S0 - [id number] Implanted:Qty: 1 on 11/08/2020 by Will Salguero MD at [facility] Other - see comments Right: Hip [employer] [id number] 03/19/2030 [id number] / 0 / [id number] [employer] [id number] 36mm Lumen Hip D Liner Acetabular Longevity Sterile Latex Free - S0 - [id number] Implanted:Qty: 1 on 11/08/2020 by Will Salguero MD at [facility] Other - see comments Right: Hip [employer] [id number] 06/13/[id number] / 0 / [id number] [employer] [id number] Taperloc 144mm Type 1 Press Fit Reduce Hip 133d 12 Standard - S0 - [id number] Implanted:Qty: 1 on 11/08/2020 by Will Salguero MD at [facility] Other - see comments Right: Hip [employer] [id number] 11/16/2029 [id number] / 0 / [id number] [employer] 650-0660 G7 36mm Type 1 Modular Hip Acetabular -3mm Offset Head Femoral - S0 - [id number] Implanted:Qty: 1 on 11/08/2020 by Will Salguero MD at [facility] Other - see comments Right: Hip [employer] [id number] 10/25/2029 650-0660 / 0 / [id number] [employer] [id number] Trilogy 6.5mm 40mm Self Tap Hip Acetabular Cortical Screw Bone - S0 - [id number] Implanted:Qty: 1 on 11/08/2020 by Will Salguero MD at [facility] Screw Right: Hip [employer] [id number] 03/02/2030 [id number] / 0 / [id number] Procedures Procedure Name Priority Date/Time Associated Diagnosis Comments ERYTHROCYTE SEDIMENTATION RATE Routine 10/19/2024 8:46 AM CDT Psoriatic arthritis (HCC) CBC WITH AUTO DIFFERENTIAL Routine 10/19/2024 8:46 AM CDT Psoriatic arthritis (HCC) COMPREHENSIVE METABOLIC PANEL Routine 10/19/2024 8:46 AM CDT Psoriatic arthritis (HCC) CRP (ACUTE PHASE) Routine 10/19/2024 8:4 6 AM CDT Psoriatic arthritis (HCC) CA ARTHROCENTESIS ASPIR&/INJ MAJOR JT/BURSA W/O US Routine 09/10/2024 8:15 AM PIZZA BAKER Left hip pain XR HIP LEFT W PELVIS 2 OR 3 VIEWS Schedule Routine, Read Routine (OP Routine) 09/10/2024 7:58 AM PIZZA BAKER Left hip pain HEPATITIS C ANTIBODY Routine 03/26/2024 9:13 AM CDT Psoriatic arthritis (HCC) from Last 3 Months or Most Recently Relevant to Health Maintenance Results * (ABNORMAL) CBC with auto differential (10/19/2024 8:46 AM CDT) White Blood Count 4.7 3.6 - 11.2 K/uL [facility] RBC 4.63 3.63 - 4.92 M/uL [facility] Hemoglobin 13.6 11.9 - 15.5 g/dL [facility] Hematocrit 41.0 36.1 - 44.3 % [facility] MCV 88.6 80.0 - 97.6 fL [facility] MCH 29.4 26.7 - 33.7 pg [facility] MCHC 33.2 32.7 - 35.5 g/dL [facility] RBC Dist Width 15.1 12.3 - 17.0 % [facility] Platelet Count 277 140 - 440 K/uL [facility] MPV 8.8 6.8 - 10.4 fL [facility] Neutrophils % 54.5 38.7 - 74.5 % [facility] Lymphocyte % 26.8 20.0 - 54.3 % [facility] Monocytes % 15.1(H) 4.3 - 13.5 % [facility] Eosinophils % 2.6 0.0 - 6.0 % [facility] Basophil % 1.0 0.0 - 3.0 % [facility] Absolute Neutrophil 2.6 1.8 - 6.6 K/uL [facility] Absolute Lymphocyte 1.3 0.8 - 3.3 K/uL [facility] Absolute Monocyte 0.7 0.2 - 1.2 K/uL [facility] Absolute Eosinophil 0.1 0.0 - 0.5 K/uL [facility] Absolute Basophil 0.0 0.0 - 0.2 K/uL [facility] Nucleated RBC % 0.1 0.0 - 0.4 /100 WBC [facility] Blood 10/19/2024 8:46 AM CDT 10/19/2024 9:46 AM CDT Ciara Minor MD LAB BLOOD ORDERABLES F inal Result [facility] * Erythrocyte sedimentation rate (10/19/2024 8:46 AM CDT) Erythrocyte sedimentation rate 11 1 - 30 mm/hr Blood 10/19/2024 8:46 AM CDT 10/19/2024 9:57 AM CDT Ciara Minor MD LAB BLOOD ORDERABLES F inal Result Performing Organization Address City/[facility] Co de Phone Number [facility] Department [place] [address] * CRP (acute phase) (10/19/2024 8:46 AM CDT) C-Reactive Protein, Acute <3.0 <5.0 mg/L [facility] Blood 10/19/2024 8:46 AM CDT 10/19/2024 9:46 AM CDT Ciara Minor MD LAB BLOOD ORDERABLES F inal Result Performing Organization Address [facility] Co de Phone Number [facility] * Comprehensive metabolic panel (10/19/2024 8:46 AM CDT) Total Protein 6.6 6.1 - 8.4 g/dL [facility] Albumin 4.1 3.5 - 5.2 g/dL [facility] Calcium 10.3 8.6 - 10.3 mg/dL [facility] BUN 11 7 - 23 mg/dL [facility] Total Bilirubin 0.28 0.20 - 1.40 mg/dL [facility] Alk Phos, Total 110 35 - 129 IU/L [facility] AST (SGOT) 18 11 - 47 IU/L [facility] ALT (SGPT) 17 6 - 53 IU/L [facility] Creatinine 0.81 0.60 - 1.10 mg/dL [facility] Sodium 140 135 - 145 mmol/L [facility] Potassium 4.8 3.3 - 5.1 mmol/L [facility] Chloride 102 95 - 107 mmol/L [facility] CO2 Content 28 21 - 29 mmol/L [facility] Glucose 84 64 - 99 mg/dL [facility] Comment: NONFASTING GLUCOSE RANGE = 64-199 mg/dL FASTING GLUCOSE 64 - 99 = NORMAL FASTING GLUCOSE 100 - 125 = IMPAIRED FASTING GLUCOSE FASTING GLUCOSE >=126 = PROVISIONAL DIAGNOSIS OF DIABETES eGFR 80.0 >60.0 mL/min/1.7 3 m2 [facility] Blood 10/19/2024 8:46 AM CDT 10/19/2024 9:46 AM CDT us Ciara Minor MD LAB BLOOD ORDERABLES F inal Result [facility] * CA ARTHROCENTESIS ASPIR&/INJ MAJOR JT/BURSA W/O US (09/10/2024 8:15 AM PIZZA BAKER) Narrative Alonzo Jimenez MD - 09/10/2024 8:15 AM PIZZA BAKER Alonzo Jimenez MD 09/10/2024 9:00 AM Large Joint Injection: L greater trochanteric bursa Performed by: Alonzo Jimenez MD Authorized by: Alonzo Jimenez MD Procedure Details: Location: Hip Site: L greater trochanteric bursa Medications: 40 mg triamcinolone 80 mg/mL; 7 mL BUPivacaine 0.75 % (7.5 mg/mL) us Alonzo Jimenez MD IN CLINIC/BEDSIDE OR DERABLES Final Result * XR Hip Left 2 or 3 Views W Pelvis (09/10/2024 7:58 AM PIZZA BAKER) Anatomical Region Laterality Modality Lower Extremities, Hip, Pelvis Left C omputed Radiography 09/10/2024 8:17 AM PIZZA BAKER Impressions 09/10/2024 8:17 AM PIZZA BAKER 1. Coxa profunda and mild left hip joint osteoarthritis Electronically signed by: Juliane Romeo MD Narrative 09/10/2024 8:17 AM PIZZA BAKER EXAMINATION: XR HIP LEFT 2 OR 3 VIEWS W PELVIS HISTORY: Left hip pain FINDINGS: 2 radiographs of the left hip are compared to 11/09/2020. No acute displaced fracture or dislocation. On the left, there is coxa profunda and mild hip joint osteoarthritis. A right hip arthroplasty is present. Lower lumbar degenerative disc disease is noted. Procedure Note Shawna Romeo MD - 09/10/2024 EXAMINATION: XR HIP LEFT 2 OR 3 VIEWS W PELVIS HISTORY: Left hip pain FINDINGS: 2 radiographs of the left hip are compared to 11/09/2020. No acute displaced fracture or dislocation. On the left, there is coxa profunda and mild hip joint osteoarthritis. A right hip arthroplasty is present. Lower lumbar degenerative disc disease is noted. IMPRESSION: 1. Coxa profunda and mild left hip joint osteoarthritis Electronically signed by: Juliane Romeo MD us Alonzo Jimenez MD IMG XR PROCEDURES Fi nal Result * Hepatitis C antibody Blood (03/26/2024 9:13 AM CDT) Hep C Ab Nonreactive Nonreactive Comment:Antibodies to HCV no t detected. Does NOT exclude the possibility of recent exposure to HCV. Current interpretive data was last revised on 22 Blood 03/26/2024 9:13 AM CDT 03/26/2024 10:01 AM CDT us Ciara Minor MD LAB MICROBIOLOGY - GEN ERAL ORDERABLES Final Result [facility] Department [place] [id number] from Last 3 Months or Most Recently Relevant to Health Maintenance Insurance [facility] CHOICE [facility]US [facility] HMO/PPO Address: [address] [address] [place] [address] [facility] MEDICARE [facility] CHOICE PLUS [facility] HMO/PPO Address[address] [address] [place] [address] MEDICARE [facility] Address: [address] [address] [place] [address] [facility] Advance Directives For more information, please contact: [phone] Documents on File Type Date Recorded Patient Electronic Repair Troubleshooter Expl anation ADVANCE DIRECTIVE 07/31/2022 11:28 AM ROSALEE R OF [employer] PATCHING MACHINE OPERATOR-MEDICAL * Full Code (Latest Code Status on File) Date Activated Date Inactivated Comments 11/19/2022 7:29 AM 11/20/2022 5:24 AM * Full Code Date Activated Date Inactivated Comments 11/08/2020 12:53 PM 11/10/2020 8:47 PM Care Teams Commercial Driver Relationship Specialty Start Date End Date Judd Woodson MD PCP - General Family Medicine 11/05/18 Emily Hinton NP [address] [place] [address] Nurse Practitioner Ui Lead Developer 10/09/22 Brian Woo MD [address] [place] [address] Consulting Physician Neurosurgery 11/01/22 [facility] - Outpatient Therapy Physical Therapist 07/21/22
--- OUTSIDE RECORDS SUMMARY | 2024-12-01 15:06 | XMS_ITS | Encounter Summary ---
Author Organization [facility] Address [address] [place] [address] Phone Care Team Providers Care Residential Caregiver Name Role Phone Judd Woodson MD Primary Care Provider [phone] Emily Hinton NP Unavailable Brian Woo MD Unavailable [phone] Encounter Details Date Type Department Care Team (Late st Contact Info) Description 12/12/2020 Documentation [facility] Orthopaedic Surgery [address] [facility] Advanced Medicine 6th [place] [address] [place] [address] Fritz Mendiola RN Social History [...] on file Legal Sex Female 6:49 PM AUTO MOTOR MECHANIC Gender Identity Female 09/13/2020 6:20 AM AUTO MOTOR MECHANIC Sexual Orientation Not on file documented as [...] during COVID infection. Labs results scanned in [employer] Piping Designer. Patient is COVID Recovered on 07/15/20. 07/15/2020 09/04/2020 01/02/2021 3:05 AM CDT Tuberculosis (rule out) Comment:06/04/2022 growing Mycobacterium aviuim. Nichol Snowden RN 05/30/2022 BAL on 05/20 growing AFB, no previous positive labs. Nichol Snowden RN 05/30/2022 05/30/2022 06/04/2022 9:[address] documented as of this encounter Care Teams Residential Caregiver Relationship Specialty Start Date End Date Judd Woodson MD PCP - General Family Medicine 11/05/18 Emily Hinton NP [address] [place] [address] Nurse Practitioner Net Front End Developer 10/09/22 Brian Woo MD [address] [place] [address] Consulting Physician Neurosurgery 11/01/22 [facility] Physical Therapist 07/21/22 documented as of this encounter
--- OUTSIDE RECORDS SUMMARY | 2024-12-01 15:06 | XMS_ITS | Encounter Summary ---
Author Organization [facility] Address [address] [place] [address] Phone Care Team Providers Care Arts Administrator Or Manager Name Role Phone Judd Woodson MD Primary Care Provider [phone] Emily Hinton NP Unavailable [phone] Brian Woo MD Unavailable [phone] Encounter Details Date Type Department Care Team (Late st Contact Info) Description 10/20/2024 Results Follow-Up [facility] Rheumatology [address] [facility] Advanced Medicine 5th [place] [address] [place] [address] Ciara Minor MD [address] [place] [address] Social History Tobacco Use Types [...] the money to buy more. Never true 10/06/19 25 Within the past 12 months, t he food you bought just didn't last and you didn't have money to get more. Never true 10/05/2024 Personal Safety Answer Date Recorded Have you ever been in or are you currently in a harmful physical or emotional relationship or is someone making you feel afraid or unsafe? Denies 10/05/2024 Comments No Sex and Gender Information Value Date Recorded Sex Assigned at Not on file Legal Sex Female 6:49 PM CONDOMINIUM PROPERTY MANAGER Gender Identity Female 09/13/2020 6:20 AM CONDOMINIUM PROPERTY MANAGER Sexual Orientation Not on file documented as of this encounter Miscellaneous Notes * Result Encounter Note - Ciara Minor MD - 10/20/2024 9:34 AM CDT Mrs. Austin, Testing returned within an acceptable range. Juliane Minor MD Rheumatology Fellow [facility] documented in this encounter Plan of Treatment Not on [...] on filedocumented in this encounter Care Teams Arts Administrator Or Manager Relationship Specialty Start Date End Date Judd Woodson MD PCP - General Family Medicine 11/05/18 Emily Hinton NP [address] [place] [address] Nurse Practitioner School Principal 10/09/22 Brian Woo MD [address] [place] [address] Consulting Physician Neurosurgery 11/01/22 [facility] - Outpatient Therapy Physical Therapist 07/21/22 documented as of this encounter
--- OUTSIDE RECORDS SUMMARY | 2024-12-01 15:06 | XMS_ITS | Encounter Summary ---
Author Organization [facility] Healthcare Address [address] [place] [address] Care Team Providers Care Light Air Defense Artillery Crewmember Name Role Phone Judd Woodson MD Primary Care Provider [phone] Emily Hinton NP Unavailable [phone] Brian Woo MD Unavailable [phone] Reason for Visit * Reason Comments OP Infusion Cosentyx * Episode Based Medications (Routine) - Authorized Specialty Diagnoses / Procedures Referred By Contac t Referred To Contact Diagnoses Psoriatic arthritis (HCC) Oz Meredith MD [address] [place] [address] Phone: tel: fax: [facility] [address] [place] [address] Phone: tel: fax: Referral ID Status Reason Start Date Expiration Date V isits Requested Visits Authorized [id number] Authorized 08/18/2023 07/20/2025 99 99 Encounter Details Date Type Department Care Team (Late st Contact Info) Description 11/30/2024 9:00 AM CDT Infusion [facility] [address] [place] [address] Psoriatic arthritis (HCC) (Primary Dx) Social History Tobacco Use Types Packs/Day Years [...] on file Legal Sex Female 6:49 PM MEDICAL RECORD ASSISTANT Gender Identity Female 09/13/2020 6:20 AM MEDICAL RECORD ASSISTANT Sexual Orientation Not on file documented as of this encounter Last Filed Vital Signs Vital Sign Reading Time Taken Comments Blood Pressure 167/86 11/30/2024 9:30 AM CDT Pulse 60 11/30/2024 9:30 AM CDT Temperature 36.1 C (96.9 F) 11/30/2024 8:26 AM CDT Respiratory Rate - - Oxygen Saturation 99% 11/30/2024 9:30 AM CDT Inhaled Oxygen Concentration - - Weight 84.1 kg (185 lb 8 oz) 11/30/2024 8:26 AM CDT Height - - Body Mass Index 31.84 10/19/2024 8:01 AM CDT documented in this encounter Plan of Treatment [...] documented as of this encounter Visit Diagnoses Diagnosis Psoriatic arthritis (HCC)- Primary Psoriatic arthropathy documented in this encounter Administered Medications Inactive Administered Medications - up to 3 most recent administrations Medication Order MAR Action Action Date Dose Rate Site acetaminophen (TYLENOL) tablet 500 mg 500 mg, oral, Once, On Fri11/30/24 at 0828, For 1 doseIndications:Psoriatic arthritis (HCC) Given 11/30/2024 8:31 AM CDT 500 mg secukinumab (COSENTYX) 125 mg in sodium chloride 0.9% 95 mL IVPB 125 mg, intravenous, at 200 mL/hr, Administer over 30 Minutes, Once, On Fri11/30/24 at 0828, For 1 dose, Round to nearest 125mg vial size to eliminate waste. Not to exceed 300mg. Administer using in-line, low-sorbing, low protein-binding 0.2-micron filter. After infusion is complete, flush line with 50 mL or more of NS. Do not infuse in the same line with other medications. Protect from light., I /authorizing provider attest that the patient meets the approved [facility] Use Criteria: Yes, Approving Provider: Tierraications:Psoria tic arthritis (HCC) New Bag 11/30/2024 8:54 AM CDT 125 mg 200 mL/hr sodium chloride 0.9% infusion 30 mL 30 mL, intravenous, Once, On Fri11/30/24 at 0828, For 1 dose, 0-250ml/hr to flush line after IV infusions when no maintenance IV ordered. Infuse 30mL at the same rate as the secondary infusion. Run as primary IV, not intended for KVOIndications:Psoriatic arthritis (HCC) New Bag 11/30/2024 9:31 AM CDT 30 mL documented in this encounter Orders Medications Ordered That Kendell ht Not Have Been Administered Count Last Ordered Date First Ordered Date sodium chloride 0.9% flush 10 mL 1 12/01/19 25 Appointment Requests Count Last Ordered Date Fi rst Ordered Date INFUSION APPT REQUEST 90 MIN 5 11/30/2024 documented in this encounter Care Teams Light Air Defense Artillery Crewmember Relationship Specialty Start Date End Date Judd Woodson MD PCP - General Family Medicine 11/05/18 Emily Hinton NP [address] [place] [address] Nurse Practitioner Bricklayer 10/09/22 Brian Woo MD [address] [place] [address] Consulting Physician Neurosurgery 11/01/22 [facility] - Outpatient Therapy Physical Therapist 07/21/22 documented as of this encounter
--- OUTSIDE RECORDS SUMMARY | 2024-12-01 15:06 | XMS_ITS | Referral Summary ---
Author Organization [facility] Address [address] [place] [address] Care Team Providers Care Clerical Assigner Name Role Phone Judd Woodson MD Primary Care Provider [phone] Emily Hinton NP Unavailable Brian Woo MD Unavailable Encounters Date Type Department Care Team Description 11/30/2024 9:00 AM CDT Infusion [facility] [address] [place] [address] [address] [place] [phone] Psoriatic arthritis (HCC) (Primary Dx) 11/02/2024 8:30 AM CDT Infusion [facility] [address] [place] [phone] Psoriatic arthritis (HCC) (Primary Dx) 11/01/2024 Orders Only [facility] [address] [place] [address] [address] [place] [phone] Guerita Zaman RN 10/28/2024 Telephone [facility] Rheumatology [facility] Medicine 5th [place] [phone] Ciara Minor MD 10/20/2024 Results Follow-Up [facility] Rheumatology [facility] 5th [place] [address] DimCiara vila MD 10/19/2024 8:46 AM CDT - 10/19/2024 11:59 PM CDT Hospital Encounter [facility] [address] [place] [address] Psoriatic arthritis (HCC) Discharge Disposition: Discharge to home or self care 10/19/2024 8:45 AM CDT Lab [facility] Endocrinology Metabolism and Lipid [address] [facility] Advanced Medicine 5th [place] [address] [place] [address] Psoriatic arthritis (HCC) 10/19/2024 8:00 AM CDT Office Visit [facility] Rheumatology [address] [facility] 5th [place] [address] [place] [address] Ciara Minor MD Psoriatic arthritis (HCC) (Primary Dx) 10/05/2024 9:00 AM CDT Infusion [facility] [address] [place] [address] Ave [address] [place] [phone] Psoriatic arthritis (HCC) (Primary Dx) 09/10/2024 7:45 AM SENIOR ASIC ENGINEER - 09/10/2024 11:59 PM SENIOR ASIC ENGINEER Hospital Encounter [facility] [address] [place] [address] Left hip pain Discharge Disposition: Discharge to home or self care 09/10/2024 8:15 AM SENIOR ASIC ENGINEER Office Visit [facility] Orthopaedic Surgery [address] [facility] Advanced [facility] 6th [place] [address] [place] [address] Alonzo Jimenez MD Left hip pain (Primary Dx) 09/07/2024 8:30 AM SENIOR ASIC ENGINEER Infusion [facility] [address] [facility] [address] [place] [address] Psoriatic arthritis (HCC) (Primary Dx) 09/07/2024 10:30 AM SENIOR ASIC ENGINEER Office Visit [facility] Pulmonary [address] [facility] Medicine 8th [place] [address] [place] [address] Alexx Curry Chi, MD Pulmonary infiltrates (Primary Dx) from Last 3 Months Allergies Active Allergy [...] 01/31/2023 DDD (degenerative disc disease), lumbar 10/29/19 Overview (10/28/2022): Added automatically from request for surgery [id number] Mycobacterium infection 08/13/2022 Assessment & Plan (10/11/2022 2:32 PM CDT): - positive for mycobacterium avium infection, susceptibilities are scanned into Epic. - Continue Assessment & Plan (08/13/2022 10:30 AM SENIOR ASIC ENGINEER): - opt for treatment of mycobacterium avium [...] (05/28/2022): Added automatically from request for surgery [id number] Neuroforaminal stenosis of lumbar spine 05/28/20 Overview (05/28/2022): Added automatically from request for surgery [id number] Pulmonary infiltrates 05/27/2022 Primary osteoarthritis of right hip 07/26/2020 Overview (07/26/2020): Added automatically from request for surgery [id number] Sacroiliac joint dysfunction of right side 06/12 COPD (chronic obstructive pulmonary disease) MDD (major depressive disorder) 02/08/2019 Hypothyroid 02/08/2019 Osteoarthritis 02/08/2019 Lung nodule Immunizations Immunization Administration Dates Next Due COVID-19 mRNA ([employer]) 0.3 m L (30 mcg) vaccine (12 years and up) 05/17/2024 Influenza, Quadrivalent, Hig h Dose, Preservative Free, Intrr 05/01/2021,05/02/2020 Influenza, Quadrivalent, Spl it, Preservative Free, Intramuscular 06/06/2022,04/16/2019,04/14/2019 Influenza, Trivalent, Preser vative Free, Intramuscular 05/17/2024 Influenza, Unspecified 04/25/2023 RB-Doors SARS-CoV-2 Monovalent Vaccination (12+ Yrs) LU-READY TO [...] on file Legal Sex Female 6:49 PM SENIOR ASIC ENGINEER Gender Identity Female 09/13/2020 6:20 AM SENIOR ASIC ENGINEER Sexual Orientation Not on file Last Filed [...] 10/19/2024 8:01 AM CDT Plan of Treatment Not on file Goals [...] as needed Medical Devices Implanted Type Area Bingo Checker Device Identifier Shelf Expiration Date Model / Serial / Lot [employer] [id number] 50mm Limit 3 Hole Hip D Hemisphere Offset Shell Acetabular - S0 - [id number] Implanted:Qty: 1 on 11/08/2020 by Will Salguero MD at [facility] Other - see comments Right: Hip [employer] [id number] 03/19/2030 [id number] / 0 / [id number] [employer] [id number] 36mm Lumen Hip D Liner Acetabular Longevity Sterile Latex Free - S0 - [id number] Implanted:Qty: 1 on 11/08/2020 by Will Salguero MD at [facility] Other - see comments Right: Hip [employer] [id number] 06/13/2025 [id number] / 0 / [id number] [employer] [id number] Taperloc 144mm Type 1 Press Fit Reduce Hip 133d 12 Standard - S0 - [id number] Implanted:Qty: 1 on 11/08/2020 by Will Salguero MD at [facility] Other - see comments Right: Hip [employer] [id number] 11/16/2029 [id number] / 0 / [id number] [employer] 650-0660 G7 36mm Type 1 Modular Hip Acetabular -3mm Offset Head Femoral - S0 - [id number] Implanted:Qty: 1 on 11/08/2020 by Will Salguero MD at [facility] Other - see comments Right: Hip [employer] [id number] 10/25/2029 [id number] / 0 / [id number] [employer] [id number] Trilogy 6.5mm 40mm Self Tap Hip Acetabular Cortical Screw Bone - S0 - [id number] Implanted:Qty: 1 on 11/08/2020 by Will Salguero MD at [facility] Screw Right: Hip [employer] [id number] 03/02/2030 [id number] / 0 / [id number] Procedures Procedure Name Priority Date/Time Associated Diagnosis Comments ERYTHROCYTE SEDIMENTATION RATE Routine 10/19/2024 8:46 AM CDT Psoriatic arthritis (HCC) CBC WITH AUTO DIFFERENTIAL Routine 10/19/2024 8:46 AM CDT Psoriatic arthritis (HCC) COMPREHENSIVE METABOLIC PANEL Routine 10/19/2024 8:46 AM CDT Psoriatic arthritis (HCC) CRP (ACUTE PHASE) Routine 10/19/2024 8:4 6 AM CDT Psoriatic arthritis (HCC) DE ARTHROCENTESIS ASPIR&/INJ MAJOR JT/BURSA W/O US Routine 09/10/2024 8:15 AM SENIOR ASIC ENGINEER Left hip pain XR HIP LEFT W PELVIS 2 OR 3 VIEWS Schedule Routine, Read Routine (OP Routine) 09/10/2024 7:58 AM SENIOR ASIC ENGINEER Left hip pain HEPATITIS C ANTIBODY Routine 03/26/2024 9:13 AM CDT Psoriatic arthritis (HCC) from Last 3 Months or Most Recently Relevant to Health Maintenance Results * (ABNORMAL) CBC with auto differential (10/19/2024 8:46 AM CDT) Pathologist [facility] White Blood Count 4.7 3.6 - 11.2 [...] ORDERABLES F inal Result Performing Organization Address City/[facility]/ZIP Co de Phone Number [facility] * Erythrocyte sedimentation rate (10/19/2024 8:46 AM CDT) Erythrocyte sedimentation rate 11 1 - 30 mm/hr Blood 10/19/2024 8:46 AM CDT 10/19/2024 9:57 AM CDT Ciara Minor MD LAB BLOOD ORDERABLES F inal Result Performing Organization Address [facility] Co de Phone Number [facility] Department [place] [address] * CRP (acute phase) (10/19/2024 8:46 AM CDT) C-Reactive Protein, Acute <3.0 <5.0 mg/L [facility] Blood 10/19/2024 8:46 AM CDT 10/19/2024 9:46 AM CDT Ciara Minor MD LAB BLOOD ORDERABLES F inal Result [facility] * Comprehensive [...] IM [facility] * DE ARTHROCENTESIS ASPIR&/INJ MAJOR JT/BURSA W/O US (09/10/2024 8:15 AM SENIOR ASIC ENGINEER) Narrative Alonzo Jimenez MD - 09/10/2024 8:15 AM SENIOR ASIC ENGINEER Alonzo Jimenez MD 09/10/2024 9:00 AM Large [...] 3 Views W Pelvis (09/10/2024 7:58 AM SENIOR ASIC ENGINEER) Anatomical Region Laterality Modality Lower Extremities, Hip, Pelvis Left C omputed Radiography 09/10/2024 8:17 AM SENIOR ASIC ENGINEER Impressions 09/10/2024 8:17 AM SENIOR ASIC ENGINEER 1. Coxa profunda and mild left hip joint osteoarthritis Electronically signed by: Juliane Romeo MD Narrative 09/10/2024 8:17 AM SENIOR ASIC ENGINEER EXAMINATION: XR HIP LEFT 2 OR 3 [...] osteoarthritis Electronically signed by: Juliane Romeo MD Alonzo Jimenez MD IMG XR PROCEDURES Fi [...] MICROBIOLOGY - GEN ERAL ORDERABLES Final Result [facility] [place] [address] from Last 3 Months or Most Recently Relevant to Health Maintenance Insurance [facility] CHOICE PLUS [employer] MEDICARE [facility] CHOICE PLUS MEDICARE [facility] Advance Directives For more information, please contact: [phone] Documents on File Type Date Recorded Patient Cottonseed Meat Presser Expl anation ADVANCE DIRECTIVE 07/31/2022 11:28 AM ROSALEE R OF GAS FURNACE INSTALLER-MEDICAL * Full Code (Latest Code Status on File) Date Activated Date Inactivated Comments 11/19/2022 7:29 AM 11/20/2022 5:24 AM * Full Code Date Activated Date Inactivated Comments 11/08/2020 12:53 PM 11/10/2020 8:47 PM Care Teams Clerical Assigner Relationship Specialty Start Date End Date Judd Woodson MD PCP - General Family Medicine 11/05/18 Emily Hinton NP [address] [address] Nurse Practitioner Labor Trainer 10/09/22 Brian Woo MD [address] [address] Consulting Physician Neurosurgery 11/01/22 [facility] [place] - Outpatient Therapy Physical Therapist 07/21/22
--- OUTSIDE RECORDS SUMMARY | 2024-12-01 15:06 | XMS_ITS | Encounter Summary ---
Author Organization [facility] Address [address] [place] [address] Phone Care Team Providers Care Auto Servicer Name Role Phone Judd Woodson MD Primary Care Provider [phone] Emily Hinton NP Unavailable Brian Woo MD Unavailable [phone] Encounter Details Date Type Department Care Team (Late st Contact Info) Description 04/19/2021 Orders Only [facility] Orthopaedic Surgery [address] [facility] Advanced Medicine 6th [place] [address] [place] [address] Will Salguero MD [address] [facility] [address] [place] [address] Social History Tobacco Use Types [...] on file Legal Sex Female 6:49 PM TURPENTINER Gender Identity Female 09/13/2020 6:20 AM TURPENTINER Sexual Orientation Not on file documented as [...] documented as of this encounter Care Teams Auto Servicer Relationship Specialty Start Date End Date Judd Woodson MD PCP - General Family Medicine 11/05/18 Emily Hinton NP [address] [place] [address] Nurse Practitioner Biophysics Scientist 10/09/22 Brian Woo MD [address] [place] [address] Consulting Physician Neurosurgery 11/01/22 [facility] - Outpatient Therapy Physical Therapist 07/21/22 documented as of this encounter
--- OUTSIDE RECORDS SUMMARY | 2024-12-01 15:06 | XMS_ITS | Encounter Summary ---
Author Organization [facility] Healthcare Address [address] [place] [address] Care Team Providers Care Tuckpointer Cleaner Caulker Name Role Phone Judd Woodson MD Primary Care Provider [phone] Emily Hinton NP Unavailable [phone] Brian Woo MD Unavailable [phone] Encounter Details Date Type Department Care Team (Late st Contact Info) Description 11/13/2022 Telephone [facility] Radiology [facility] [address] [place] [address] Mario Souza RN Social History Tobacco Use [...] on file Legal Sex Female 6:49 PM DIALYSIS RN Gender Identity Female 09/13/2020 6:20 AM DIALYSIS RN Sexual Orientation Not on file COVID-19 Exposure [...] on filedocumented in this encounter Care Teams Tuckpointer Cleaner Caulker Relationship Specialty Start Date End Date Judd Woodson MD PCP - General Family Medicine 11/05/18 Emily Hinton NP [address] [place] [address] Nurse Practitioner Roadside Mechanic 10/09/22 Brian Woo MD [address] [place] [address] Consulting Physician Neurosurgery 11/01/22 [facility] - Outpatient Therapy Physical Therapist 07/21/22 documented as of this encounter
== END 2024-12-01 15:01 | disposition home or self-care (01) ==
PROVIDERS: PCP Family Medicine; Visit Provider Nurse Practitioner Family
DX: M25.511 Pain in right shoulder (principal); M54.2 Cervicalgia; M43.02 Spondylolysis, cervical region
CPT/HCPCS: 72040; 73030

== ENCOUNTER 2024-12-07 10:06 | Outpatient (RCR) | payer MEDICARE, OTHER, SELFPAY ==
--- NOTE | 2024-12-07 10:46 | OPREHPOC ---
Outpatient Therapy Plan of Care This is a Multidisciplinary Plan of Care that may contain components documented by all disciplines (PT, OT, and ST.) PT Problem 1 PT Problem #1 Knowledge Deficit PT Goal 1 Goal / Goal Update independent and compliant with HEP Target Visit 6 PT Problem 2 PT Problem #2 Pain PT Goal 1 Goal / Goal Update decrease R UE pain and symptoms by 50% or greater at worst Target Visit 12 PT Problem 3 PT Problem #3 Impaired Range of Motion PT Goal 1 Goal / Goal Update improve bilateral cervical side bending to 30 degrees or better improve bilateral cervical rotation to 75 degrees or better Target Visit 12 PT Problem 4 PT Problem #4 Impaired Strength PT Goal 1 Goal / Goal Update improve R shoulder strength to 4+/5 or better improve R elbow strength to 4+/5 or better improve R hand visiting housekeeper strength to 50lbs or better Target Visit 12 PT Problem 5 PT Problem #5 Impaired Functional Mobility PT Goal 1 Goal / Goal Update quick dash to display 30% or less functional deficits ndi to display 10% or less functional deficits patient to report ability to carry things in the R hand without dropping them patient to return to prior level home care activities without limitations or compensation Target Visit 12
--- NOTE | 2024-12-07 10:46 | PTOPEVAL1 ---
Assessment and note entered by JT File, PT Evaluation Information Assessment Status Evaluation ICD-10 Condition Codes (PT) Cervicalgia M54.2,Pain in right shoulder M25.511 Onset 12/01/24 Subjective Information patient reports she has been experiencing a lot of pain and weakness in the R arm and shoulder. she reports she tried to play it off initially, and hoped it would get better, but she is now having mm fatigue and tingling/weakness in the R hand. she reports she saw her PCP who had the patient get an xray. she reports the xray showed a bunch of arthritis in the neck. she reports she did have a RTC repair of the R shoulder a few years ago and she was concerned it might be the shoulder again. she reports she has been taking predisone and a mm relaxor. she reports she does get some relief from her meds, but not much. she reports she gets symptoms in the R hand, specifically the thumb and middle/ring fingers. she reports she has relief of some symptoms with holding the R hand on top of her head. Reported Pain Level Pain Score 1,5: Self Report Assessment PT Clinical Summary mrs. mcadams is a 64 yo woman who presents to skilled PT services for evaluation and treatment of R UE symptoms. she reports signs and symptoms consistent with a R cervical radiculopathy. she displays decreased cervical rom, R UE weakness, R UE paresthesia's, and positive cervical radiculopathy special testing. continued skilled PT is indicated to address patient's objective/ functional deficits and return to her prior level functional activity performance/quality of life. Plan of Care Interventions Electrical Stimulation,Hot Pack/Cold Pack,Manual Therapy,Mechanical Traction,Patient/Caregiver Education,Therapeutic Activities,Therapeutic Exercise PT Services Indicated Yes Treatment Frequency and 3x weekly for 12 visits Duration These treatments will address the objective and functional deficits as defined above. The patient will be advanced safely and appropriately in order for the patient to progress towards his/her prior level of function. Additional exercises will be introduced and as well as a comprehensive home exercise program upon discharge, if needed, ?to ensure carryover of functional gains achieved in the clinic. This treatment plan has been reviewed and agreement upon by the patient.
--- NOTE | 2024-12-29 08:55 | OPREHPOC ---
Outpatient Therapy Plan of Care This is a Multidisciplinary Plan of Care that may contain components documented by all disciplines (PT, OT, and ST.) PT Problem 1 PT Problem #1 Knowledge Deficit PT Goal 1 Goal / Goal Update independent and compliant with HEP Target Visit 6 Progress Met PT Problem 2 PT Problem #2 Pain PT Goal 1 Goal / Goal Update decrease R UE pain and symptoms by 50% or greater at worst Target Visit 12 Progress Not Met PT Problem 3 PT Problem #3 Impaired Range of Motion PT Goal 1 Goal / Goal Update improve bilateral cervical side bending to 30 degrees or better improve bilateral cervical rotation to 75 degrees or better Target Visit 12 Progress Not Met PT Problem 4 PT Problem #4 Impaired Strength PT Goal 1 Goal / Goal Update improve R shoulder strength to 4+/5 or better improve R elbow strength to 4+/5 or better improve R hand vehicle glass technician strength to 50lbs or better Target Visit 12 Progress Not Met PT Problem 5 PT Problem #5 Impaired Functional Mobility PT Goal 1 Goal / Goal Update quick dash to display 30% or less functional deficits ndi to display 10% or less functional deficits patient to report ability to carry things in the R hand without dropping them patient to return to prior level home care activities without limitations or compensation Target Visit 12 Progress Not Met
--- NOTE | 2024-12-29 08:55 | PTOPPROG ---
Assessment and note entered by Yany Rangel, PT Evaluation Information Assessment Status Progress ICD-10 Condition Codes (PT) Cervicalgia M54.2,Pain in right shoulder M25.511 Onset 12/01/24 Subjective Information Pt reports feeling like PT hasn't helped and she denies any improvement in her arm/shoulder pain. She still notes pain in the arm that goes down into the hand. Assessment PT Clinical Summary Mrs. Austin has attended 10 total skilled PT visits for R neck and shoulder pain radiating into the fingers. Since beginning PT she verbalizes no change in symptoms. She continues to demonstrate pain in the R side neck and shoulder with pain radiating into the fingers, as well as limitations in cervical ROM and R shoulder strength. She has responded well to therapeutic modalities and manual therapy and can benefit from continued skilled PT intervention to continue progressing toward goals. Plan of Care Interventions Electrical Stimulation,Hot Pack/Cold Pack,Manual Therapy,Mechanical Traction,Patient/Caregiver Education,Therapeutic Activities,Therapeutic Exercise PT Services Indicated Yes Treatment Frequency and Continue per original POC Duration These treatments will address the objective and functional deficits as defined above. The patient will be advanced safely and appropriately in order for the patient to progress towards his/her prior level of function. Additional exercises will be introduced and as well as a comprehensive home exercise program upon discharge, if needed, ?to ensure carryover of functional gains achieved in the clinic. This treatment plan has been reviewed and agreement upon by the patient.
--- NOTE | 2025-01-04 08:02 | PTOPDC ---
Assessment and note entered by Glory Roman DPT Evaluation Information Assessment Status Discharge Diagnosis neck pain, R arm pain ICD-10 Condition Codes (PT) Cervicalgia M54.2,Pain in right shoulder M25.511 Onset 12/01/24 Subjective Information Patient reports pain continues to persist down the R UE. She reports she has weakness in the entire R arm. She reports difficulty with opening things. She reports arm pain has been worse than neck and she thinks it may be nerve related. She reports that traction did loosen up her neck but did not relieve any radiating symptoms. Reported Pain Level Pain Score 7,4: Self Report Assessment PT Clinical Summary Mrs. Austin attended 12 visits of skilled with PT with limited progress towards goals. She demonstrates improved cervical ROM but continues to lack weakness at the R UE. She continues to demonstrates radiating pain and numbness down the R UE limiting her ability to complete house hold tasks. She could benefit from further imaging to determine next steps in plan of care. She is independent with HEP and is appropriate for DC at this time. Plan of Care PT Services Indicated No
== END 2025-01-04 20:00 | disposition home or self-care (01) ==
LOC: CHSPT 10:06
PROVIDERS: Visit Provider Nurse Practitioner Family
DX: M25.511 Pain in right shoulder (principal); M54.2 Cervicalgia
CPT/HCPCS: 97012; 97014; 97110; 97140; 97161; G0283

== ENCOUNTER 2025-01-20 08:14 | Outpatient (CLI) | payer MEDICARE, OTHER, SELFPAY ==
--- NOTE | ~2025-01-20 | MR_ITS ---
EXAMINATION: MR shoulder RT wo con DATE: 01/20/2025 09:00 INDICATION: Pain in right shoulder . TECHNIQUE: Magnetic resonance imaging (MRI) of the right shoulder was performed without intravenous c ontrast. Sequences included axial PD-weighted FS FSE, coronal oblique PD-weighted FS FSE and T2-weigh remy FS FSE, and sagittal oblique T2-weighted FS FSE and T1-weighted FSE. COMPARISON: 04/02/2017; x-ray right shoulder 12/01/2024 FINDINGS: Coracoacromial arch: Subacromial narrowing. No subcoracoid narrowing. No significant anterolateral downsloping, inferior o steophytosis, or enthesopathy. Rotator cuff: Generalized thinning of the superior cuff. Small intrasubstance type tear of the supraspinatus. 5 mm articular sided tear of the infraspinatus. Abnormal signal and thickening in the distal aspect of the infraspinatus tendon. Teres minor and subscapularis are intact. Biceps tendon and glenoid labrum: Long head of biceps tendon is intact. Degenerative changes in the glenoid labrum. Focal intermediate signal in the superior labrum and biceps anchor, likely representing granulation tissue from prior SL AP tear. Fluid: Small volume subacromial subdeltoid fluid. Minimal glenohumeral fluid. Bones/cartilage: Benign and homogenous marrow signal. Degenerative subcortical cysts in the humeral head. Moderate car tilage thinning in the glenohumeral joint. IMPRESSION: Small intrasubstance type tear of the supraspinatus. 5 mm articular sided tear of the infraspinatus, in a background of infraspinatus tendinopathy. Chronic SLAP tear, with evidence of possible partial interval healing. Subacromial narrowing with subacromial/subdeltoid bursal fluid. Mild AC joint and moderate glenohumeral joint osteoarthritis. Reviewed, dictated and finalized at location K. IMPRESSION: Small intrasubstance type tear of the supraspinatus. 5 mm articular sided tear of the infraspinatus, in a background of infraspinatu s tendinopathy. Chronic SLAP tear, with evidence of possible partial interval healing. Subacromial narrowing with subacromial/subdeltoid bursal fluid. Mild AC joint and moderate glenohumeral joint osteoarthritis.
== END 2025-01-20 08:15 | disposition home or self-care (01) ==
LOC: GOSHIMG 08:15
PROVIDERS: Visit Provider Nurse Practitioner Family
DX: M75.101 Unspecified rotator cuff tear or rupture of right shoulder, not specified as traumatic (principal); S43.431A Superior glenoid labrum lesion of right shoulder, initial encounter; M75.51 Bursitis of right shoulder; M19.011 Primary osteoarthritis, right shoulder; X58.XXXA Exposure to other specified factors, initial encounter
CPT/HCPCS: 73221

== ENCOUNTER 2025-03-07 12:46 | Outpatient (CLI) | payer MEDICARE, OTHER, SELFPAY ==
--- NOTE | ~2025-03-07 | MR_ITS ---
MRI of the cervical spine Clinical History: Cervicalgia Technique: Axial T2-weighted and gradient images, and sagittal T1-weighted, T2-weighted, and STIR siri ges were acquired. Findings: No fracture identified. There is minimal grade 1 retrolisthesis of C6 over C7. Bone marrow signals are unremarkable. At C2-C3, there is no disc bulge or herniation. No spinal canal stenosis, cord compression, or neural foraminal narrowing. At C3-C4, there is minimal disc osteophyte convex. No spinal canal stenosis, cord compression, or rig ht neural foraminal narrowing. Probable mild left neural foraminal narrowing. At C4-C5, there is degenerative disc narrowing with mild disc osteophyte complex. No spinal canal ethel nosis or cord compression. Probable mild bilateral neural foraminal narrowing. At C5-C6, there is degenerative disc narrowing with minimal disc osteophyte complex. There is probabl e mild right neural foraminal narrowing. Left neural foramen probably preserved. No canal stenosis or cord compression. At C6-C7, there is disc osteophyte complex with mild ventral cord compression. Bilateral neural jaye miguel ángel are preserved. No abnormal signal seen in the spinal cord. Paravertebral soft tissues are unremarkable. Impression: Moderate degenerative spondylitic changes, worst at C6-C7, as detailed above. Reviewed, dictated and finalized at [facility]. Impression: Moderate degenerative spondylitic changes, worst at C6-C7, as detailed above.
== END 2025-03-07 12:47 | disposition home or self-care (01) ==
LOC: GOSHIMG 12:47
PROVIDERS: Visit Provider Nurse Practitioner Family
DX: M25.519 Pain in unspecified shoulder (principal); M47.22 Other spondylosis with radiculopathy, cervical region
CPT/HCPCS: 72141

== ENCOUNTER 2025-03-15 08:04 | Outpatient (CLI) | payer MEDICARE, OTHER, SELFPAY ==
--- NOTE | ~2025-03-15 | DEXA_ITS ---
Bone Density Report Name: SHAILA CUEVA Age: 65 Sex: Female Ethnicity: White Date of : 1960 Indication: postmenopausal; screening for osteoporosis; parental hip fracture; Referring Provider: JESS ROSEN Study: Bone densitometry was performed. Exam Date: March 15, 2025 Accession number: [id number] Bone Density: Region BMD T-score Z-score Classification AP Spine(L1, L2, L4) 1.081 0.4 2.3 Normal Femoral Neck (Left) 0.807 -0.4 1.2 Normal Total Hip (Left) 0.885 -0.5 0.9 Normal World Health Organization criteria for BMD impression classify patients as: Normal (T-score at or above -1.0), Osteopenia (T-score between -1.0 and -2.5), or Osteoporosis (T-score at or below -2.5). 10-year Fracture Risk: FRAX not reported because: All T-scores for Spine Total, Hip Total, Femoral Neck at or above -1.0 Previous Exams: -- Region Exam Age BMD T-score BMD Change BMD Change Date g/cm2 vs Baseline vs Previous -- AP Spine (L1-L2,L4) 03/15/2025 65 1.081 0.4 2.8%* 2.8%* 03/15/2020 60 1.051 0.2 Total Hip(Left) 03/15/2025 65 0.885 -0.5 -3.8%* -3.8%* 03/15/2020 60 0.920 -0.2 -- *Denotes significance at 95% confidence level, LSC for AP Spine = 0.022 g/cm2, LSC for Total Hip = 0.027 g/cm2 Clinical Information Provided by Patient: Parent has had a hip fracture Has used the following medications: HRT (i.e. estrogen/hormone therapy) Patient maximum height was 64 Menopause Age: 51 Onset of menses at age 7 Number of children 1 Impression: The patient has normal bone mass. The patient has risk factors, including: parental hip fracture. The BMD for the Total Hip(Left) decreased, changing by -3.8% since the last DXA exam. Discussion: BONE DENSITY IS ABOVE THE MINIMUM DESIRABLE LEVEL AT ALL SKELETAL SITES TESTED. This patient?s bone mineral density is above the minimum desirable level (T-score -1.0 or better) at all sites measured. The patient should follow a healthful lifestyle (good nutrition with adequate calcium and vitamin D, and appropriate weight-bearing exercise). Follow-Up: Consider repeating this study in 3 to 4 years to reassess this patient's status, or sooner if there is some new clinical indication. Reported by: NED on 03/15/2025 9:16:00 AM. Reviewed, dictated and finalized at location A.
== END 2025-03-15 08:05 | disposition home or self-care (01) ==
LOC: MICIMG 08:07
PROVIDERS: PCP Nurse Practitioner Family; Visit Provider Nurse Practitioner Family
DX: Z13.820 Encounter for screening for osteoporosis (principal); Z78.0 Asymptomatic menopausal state
CPT/HCPCS: 77080

== ENCOUNTER 2025-05-05 07:15 | Outpatient (CLI) | payer MEDICARE, OTHER, SELFPAY ==
--- NOTE | ~2025-05-05 | MM_ITS ---
EXAMINATION: MM screening jaime BI w silvia HISTORY: Screening TECHNIQUE: Craniocaudal and mediolateral oblique 3-D tomosynthesis images were obtained and synthetic 2-D images were generated. CAD analysis was submitted and interpreted. COMPARISON: 01/14/2022 BREAST PARENCHYMAL COMPOSITION: There are scattered areas of fibroglandular density. FINDINGS: There is no evidence of suspicious mass, calcification, or architectural distortion to suggest malignancy. There has been no suspicious interval change. IMPRESSION: 1. No mammographic evidence of malignancy. Recommend routine screening mammography in one year. BI-RADS Category 2: Benign finding(s) Reviewed, dictated and finalized at location Q. IMPRESSION: 1. No mammographic evidence of malignancy. Recommend routine screening mammogra phy in one year. BI-RADS Category 2: Benign finding(s)
--- OUTSIDE RECORDS SUMMARY | 2025-05-05 07:18 | XMS_ITS | Encounter Summary ---
Author Organization [facility] Healthcare Address [address] [place] [address] Care Team Providers Care Admin Secretary Name Role Phone Judd Woodson MD Primary Care Provider [phone] Emily Hinton NP Unavailable [phone] Brian Woo MD Unavailable [phone] Encounter Details Date Type Department Care Team (Late st Contact Info) Description 03/08/2025 Telephone [facility] with [facility] Physicians [address] Office [address] [place] [address] Guerita Snow Social History Tobacco Use Types Packs/Day Years Used Date Smoking Tobacco: Former Cigarettes 0.5 28 1 972 - 2000 Smokeless Tobacco: Never Alcohol Use Standard Drinks/Week Comments Yes 0 (1 standard drink = 0.6 oz pur e alcohol) rare OASIS D0700: Social Isolation Answer Da te Recorded Frequency of experiencing loneliness or isolatio n Never 11/20/2022 AUDIT-C Answer Date Recorded Q1: How often do you have a drink containing alc ohol? 2-4 times a month 04/28/2025 Q2: How many drinks containi ng alcohol do you have on a typical day when you are drinking? 1 or 2 04/28/2025 Q3: How often do you have si x or more drinks on one occasion? Never 04/28/2025 Hunger Vital Sign Answer Date Recorded Within the past 12 months, y ou worried that your food would run out before you got the money to buy more. Never true 04/19/20 25 Within the past 12 months, t he food you bought just didn't last and you didn't have money to get more. Never true 04/19/2025 Personal Safety Answer Date Recorded Have you ever been in or are you currently in a harmful physical or emotional relationship or is someone making you feel afraid or unsafe? Denies 04/19/2025 Comments No Sex and Gender Information Value Date Recorded Sex Assigned at Not on file Legal Sex Female 6:49 PM TELEMARKETING SALES REPRESENTATIVE Gender Identity Female 09/13/2020 6:20 AM TELEMARKETING SALES REPRESENTATIVE Sexual Orientation Not on file documented as of this encounter Functional Status * AUDIT-C Score Answer Date of Assessment Author 2 04/28/2025 12:05 PM CDT Nayeli Garcias MA * Question Answer Date of Assessment Author Q1: How often do you have a drink containing alcohol? 2-4 times a month 04/28/2025 12:05 PM MICHELLET Bhargav Garcias MA Q2: How many drinks containing alcohol do you have on a typical day when you are drinking? 1 or 2 04/28/2025 12:05 PM MICHELLET Bhargav Garcias MA Q3: How often do you have six or more drinks on one occasion? Never 04/28/2025 12:05 PM MICHELLET Bhargav Garcias MA documented as of this encounter Miscellaneous Notes * Telephone Encounter - Rashida Lopez - 05/04/2025 7:57 AM CDT Insurance prior auth decision scanned into chart- non-affirmation decision reached. * Telephone Encounter - SnowGuerita - 03/08/2025 3:54 PM CDT & [facility] Spine Intake Name: Taniya Austin Referral Date: 03/08/[address] Brian Woo Referring Provider: Self PCP: Judd Woodson MD Second Opinion: No Hx with Neurosurgery (include provider): No Concern/Diagnosis: Neck pain down rt arm Date of Onset/Duration of Symptoms: 6 mths ago Primary Insurance: Medicare Secondary Insurance: Yes - [place] [employer] [place] Workmen's Comp: No Litigation: No MVA: No Ht: 5' 4 WT: 175 BMI: 30 Nicotine Use: No History of fusion or spinal surgery (type, date, & provider/facility): n/a Imaging/Testing - MRI Cervical on 03/07/2025 at [place], [place]. Images requested on 03/08/2025. Report requested on 03/08/2025. *Imaging considerations* Does the patient have any metal in their body (shunt, pacemaker, etc...)? No Treatment Physical Therapy *note area(s) treated*: Neck (cervical spine) treated. Pain Management/Injections *note area(s) treated*: Not completed within the last year. Current Symptoms Loss of bowel or bladder control (type & occurrences): No Weakness of one/more parts of the body: Yes - Rt shoulder down to fingertips Pain in one/more areas of the body: Yes - Rt shoulder down to fingertips Numbness of one/more areas of the body: Yes - rt shoulder down to fingertips Other: Has Arthritis w/infusions @ 4 wks Appointment Scheduled 07/29/2024 at 12:[address] Brian Woo. X-rays to be completed at [facility] at least 1hr prior to their appointment with our team. Orders tbo. New patient paperwork mailed (to be completed prior to appointment & brought with them). documented in this encounter Plan of Treatment Upcoming Encounters Date Type Department Care Team (Latest Contact Info) Description 05/25/2025 10:30 AM [facility] Hospital Encounter [facility] Operating Room [address] [place] [address] Brian Woo MD [address] [place] [address] 05/25/2025 10:30 AM TELEMARKETING SALES REPRESENTATIVE - 05/25/2025 1:30 PM [facility] Surgery [facility] Operating Room [address] [place] [address], [place] [address] Brian Woo MD [address] [place] [address] C6-7 anterior cervical discectomy and fusion Scheduled Procedures Name Priority Associated Diagnoses Date/Ti me FUSION CERVICAL - ANTERIOR DISCECTOMY - 1 LEVEL Neuroforaminal stenosis of cervical spine 05/25/2025 10:30 AM TELEMARKETING SALES REPRESENTATIVE documented as of this encounter Goals Goal [...] on filedocumented in this encounter Care Teams Admin Secretary Relationship Specialty Start Date End Date Judd Woodson MD PCP - General Family Medicine 11/05/18 Emily Hinton NP [address] [place] [address] Nurse Practitioner Transportation Officer 10/09/22 Brian Woo MD [address] [place] [address] Consulting Physician Neurosurgery 11/01/22 [facility] - Outpatient Therapy Physical Therapist 07/21/22 documented as of this encounter
--- OUTSIDE RECORDS SUMMARY | 2025-05-05 07:19 | XMS_ITS | Encounter Summary ---
Author Organization [facility] Address [address] [place] [address] Phone Care Team Providers Care Straightening Machine Operator Name Role Phone Judd Woodson MD Primary Care Provider [phone] Emily Hinton NP Unavailable [phone] Brian Woo MD Unavailable [phone] Encounter Details Date Type Department Care Team (Late st Contact Info) Description 12/12/2020 Documentation [facility] Orthopaedic Surgery [address] 6th [place] [address] [place] [address] Fritz Mendiola RN Social History [...] on file Legal Sex Female 6:49 PM LEATHER SPONGER Gender Identity Female 09/13/2020 6:20 AM LEATHER SPONGER Sexual Orientation Not on file documented as of this encounter Plan of Treatment Upcoming Encounters Date Type Department Care Team (Latest Contact Info) Description 05/25/2025 10:30 AM LEATHER SPONGER Hospital Encounter [facility] Operating Room [address] [place] [address] Brian Woo MD [address] [place] [address] 05/25/2025 10:30 AM LEATHER SPONGER - 05/25/2025 1:30 PM LEATHER SPONGER Surgery [facility] Operating Room [address] [place] [address] Brian Woo MD [address] [place] [address] C6-7 anterior cervical discectomy and fusion Scheduled Procedures Name Priority Associated Diagnoses Date/Ti me FUSION CERVICAL - ANTERIOR DISCECTOMY - 1 LEVEL Neuroforaminal stenosis of cervical spine 05/25/2025 10:30 AM LEATHER SPONGER documented as of this encounter Goals Goal [...] during COVID infection. Labs results scanned in [employer]. Patient is COVID Recovered on 07/15/20. 07/15/2020 09/04/2020 01/02/2021 3:05 AM CDT Tuberculosis (rule out) Comment:06/04/2022 growing Mycobacterium aviuim. Nichol Snowden RN 05/30/2022 BAL on 05/20 growing AFB, no previous positive labs. Nichol Snowden RN 05/30/2022 05/30/2022 06/04/2022 9:[address] documented as of this encounter Care Teams Straightening Machine Operator Relationship Specialty Start Date End Date Judd Woodson MD PCP - General Family Medicine 11/05/18 Emily Hinton NP [address] [place] [address] Nurse Practitioner Cigar Making Machine Operator 10/09/22 Brian Woo MD [address] [place] [address] Consulting Physician Neurosurgery 11/01/22 [facility] - Outpatient Therapy Physical Therapist 07/21/22 documented as of this encounter
--- OUTSIDE RECORDS SUMMARY | 2025-05-05 07:19 | XMS_ITS | Encounter Summary ---
Author Organization [facility] Address [address] [place] [address] Phone Care Team Providers Care Plant Controls Specialist Name Role Phone Judd Woodson MD Primary Care Provider [phone] Emily Hinton NP Unavailable Brian Woo MD Unavailable Encounter Details Date Type Department Care Team (Late st Contact Info) Description 04/19/2021 Orders Only [facility] Medicine Orthopaedic Surgery [address] Advanced Medicine 6th [place] [address] [place] [address] Will Salguero MD [address] [place] [address] Social History Tobacco Use Types [...] on file Legal Sex Female 6:49 PM HORIZONTAL RESAW OPERATOR Gender Identity Female 09/13/2020 6:20 AM HORIZONTAL RESAW OPERATOR Sexual Orientation Not on file documented as of this encounter Plan of Treatment Upcoming Encounters Date Type Department Care Team (Latest Contact Info) Description 05/25/2025 10:30 AM HORIZONTAL RESAW OPERATOR Hospital Encounter [facility] Operating Room [address] [place] [address] Brian Woo MD [address] [place] [address] 05/25/2025 10:30 AM HORIZONTAL RESAW OPERATOR - 05/25/2025 1:30 PM HORIZONTAL RESAW OPERATOR Surgery [facility] Operating Room [address] [place] [address] Brian Woo MD [address] [place] [address] C6-7 anterior cervical discectomy and fusion Scheduled Procedures Name Priority Associated Diagnoses Date/Ti me FUSION CERVICAL - ANTERIOR DISCECTOMY - 1 LEVEL Neuroforaminal stenosis of cervical spine 05/25/2025 10:30 AM HORIZONTAL RESAW OPERATOR documented as of this encounter Goals Goal [...] documented as of this encounter Care Teams Plant Controls Specialist Relationship Specialty Start Date End Date Judd Woodson MD PCP - General Family Medicine 11/05/18 Emily Hinton NP [address] [place] [address] Nurse Practitioner Kier Hand 10/09/22 Brian Woo MD [address] [place] [address] Consulting Physician Neurosurgery 11/01/22 [facility] - Outpatient Therapy Physical Therapist 07/21/22 documented as of this encounter
--- OUTSIDE RECORDS SUMMARY | 2025-05-05 07:19 | XMS_ITS | Encounter Summary ---
Author Organization [facility] Address [address] [place] [address] Phone Care Team Providers Care Graining Press Operator Name Role Phone Judd Woodson MD Primary Care Provider [phone] Emily Hinton NP Unavailable Brian Woo MD Unavailable [phone] Encounter Details Date Type Department Care Team (Late st Contact Info) Description 07/02/2023 Documentation [facility] Medicine Dermatology [address] [place] [address] Ky Ayala MD [address] [place] [address] Social History Tobacco Use Types Packs/Day Years [...] of Binge Drinking Not on file 09/20 Personal Safety Answer Date Recorded Have you ever been in or are you currently in a harmful physical or emotional relationship or is someone making you feel afraid or unsafe? Denies 11/19/2022 Comments No Sex and Gender Information Value Date Recorded Sex Assigned at Not on file Legal Sex Female 6:49 PM WIRE STRANDER Gender Identity Female 09/13/2020 6:20 AM WIRE STRANDER Sexual Orientation Not on file documented as of this encounter Plan of Treatment Upcoming Encounters Date Type Department Care Team (Latest Contact Info) Description 05/25/2025 10:30 AM WIRE STRANDER Hospital Encounter [facility] Operating Room [address] [place] [address] Brian Woo MD [address] [place] [address] 05/25/2025 10:30 AM WIRE STRANDER - 05/25/2025 1:30 PM WIRE STRANDER Surgery [facility] Operating Room [address] [place] [address] Brian Woo MD [address] [place] [address] C6-7 anterior cervical discectomy and fusion Scheduled Procedures Name Priority Associated Diagnoses Date/Ti me FUSION CERVICAL - ANTERIOR DISCECTOMY - 1 LEVEL Neuroforaminal stenosis of cervical spine 05/25/2025 10:30 AM WIRE STRANDER documented as of this encounter Goals Goal [...] on filedocumented in this encounter Care Teams Graining Press Operator Relationship Specialty Start Date End Date Judd Woodson MD PCP - General Family Medicine 11/05/18 Emily Hinton NP [address] [place] [address] Nurse Practitioner Claim Manager 10/09/22 Brian Woo MD [address] [place] [address] Consulting Physician Neurosurgery 11/01/22 [facility] - Outpatient Therapy Physical Therapist 07/21/22 documented as of this encounter
--- OUTSIDE RECORDS SUMMARY | 2025-05-05 07:19 | XMS_ITS | Clinical Summary ---
Author Organization [facility] Address [address] [place] [address] Care Team Providers Care Composite Layup Worker Name Role Phone Judd Woodson MD Primary Care Provider [phone] Emily Hinton NP Unavailable [phone] Brian Woo MD Unavailable [phone] Allergies Active Allergy Reactions Criticality Noted Date Comments Codeine Nausea only Low 02/05/2019 Gabapentin Nausea & Vomiting Low 11/27/2020 Hydrocodone Other (See comments) Low 11/15/2020 Nausea, Vomiting, Shakiness, Headaches Tramadol Nausea only Low 02/05/2019 Medications loratadine (CLARITIN) 10 mg tabletIndicatio ns:Allergic Rhinitis Take 1 tablet (10 mg total) by mouth as needed Active multivitamin-ir on-folic acid (Centrum) 18-400 mg-mcg tabletIndicatio ns:Vitamin Deficiency Prevention Take 1 tablet by mouth every morning Active acetaminophen ER (TYLENOL) 650 mg 8 hr tabletIndicatio ns:Arthritic Pain Take 1 tablet (650 mg total) by mouth every 6 (six) hours Active magnesium oxide 400 mg magnesium capsuleIndicati ons:hypomagnese preeti Take 1 tablet by mouth every other day Active triamcinolone (KENALOG) 0.1 % creamIndication s:Skin Inflammation Apply topically as needed for irritation 45 g 1 11/19/19 23 Active citalopram (CeleXA) 20 mg tablet Take 1 tablet (20 mg total) by mouth daily 11/23/19 23 Active levothyroxine (SYNTHROID) 112 mcg tablet Take 1 tablet (112 mcg total) by mouth daily 07/10/20 23 Active fluticasone propionate (FLONASE) 50 mcg/actuation nasal spray Administer 1 spray into each nostril daily 1 each 3 07/29/19 24 Active halobetasol (ULTRAVATE) 0.05 % cream Apply topically 2 (two) times a day as needed for rash 50 g 2 12/24/19 24 Active metoprolol XL (TOPROL-XL) 25 mg extended release tablet Take 1 tablet (25 mg total) by mouth daily 06/03/20 24 Active celecoxib (CeleBREX) 200 mg capsule TAKE 1 CAPSULE BY MOUTH TWICE A DAY 180 capsule 12/18/19 25 Active secukinumab (COSENTYX) 25 mg/mL solution Infuse 5 mL (125 mg total) IV every 4 (four) weeks 06/03/20 24 Active leflunomide (ARAVA) 20 mg tabletIndicatio ns:Psoriatic arthritis (HCC) TAKE 1 TABLET BY MOUTH EVERY DAY IN THE MORNING 90 tablet 1 01/07/20 25 025 Discontinued leflunomide (ARAVA) 10 mg tabletIndicatio ns:Psoriatic arthritis (HCC) Take 1 tablet (10 mg total) by mouth every morning 90 tablet 04/26/20 25 025 Discontinued(T herapy completed) Active Problems Problem Noted Date Diagnosed Date Leg length difference, acquired 04/28/2025 Neck and shoulder pain 04/28/2025 Overweight (BMI 25.0-29.9) 04/28/2025 Shoulder pain, right 04/28/2025 Superior labrum anterior-to- posterior (SLAP) tear of right shoulder 04/28/2025 Degeneration of intervertebral disc of lumbar re gion 04/28/2025 Sacroiliac inflammation 04/28/2025 Arthritis of right hip 04/28/2025 Lumbar disc disease with radiculopathy Neuroforaminal stenosis of cervical spine 2024 Psoriatic arthritis 08/16/2023 High risk medication use 08/16/2023 Encounter for long-term (current) use of antibio tics 01/31/2023 DDD (degenerative disc disease), lumbar 10/29/19 Overview (10/28/2022): Added automatically from request for surgery [id number] Mycobacterium infection 08/13/2022 Assessment & Plan (10/11/2022 2:32 PM CDT): - positive for mycobacterium avium infection, susceptibilities are scanned into Epic. - Continue Assessment & Plan (08/13/2022 10:30 AM INFORMATION SYSTEMS SPECIALIST): - opt for treatment of mycobacterium avium [...] (05/28/2022): Added automatically from request for surgery [id number] Neuroforaminal stenosis of lumbar spine 05/28/20 Overview (05/28/2022): Added automatically from request for surgery [id number] Pulmonary infiltrates 05/27/2022 Primary osteoarthritis of right hip 07/26/2020 Overview (07/26/2020): Added automatically from request for surgery [id number] Sacroiliac joint dysfunction of right side 06/12 COPD (chronic obstructive pulmonary disease) MDD (major depressive disorder) 02/08/2019 Hypothyroid 02/08/2019 Osteoarthritis 02/08/2019 Lung nodule Encounters Date Type Department Care Team Description 04/28/2025 12:30 PM CDT Office Visit [facility] with [facility] [address] Medical Office [address] [place] [phone] Brian Woo MD Degenerative disc disease, cervical (Primary Dx); Neuroforaminal stenosis of cervical spine 04/28/2025 11:02 AM CDT - 04/28/2025 11:59 PM CDT Hospital Encounter [facility] Imaging [address] [place] [address] Neck pain Discharge Disposition: Discharge to home or self care 04/26/2025 12:25 PM CDT Lab [facility] Medicine Endocrinology Metabolism and Lipid [address] 5th [place] [address] [place] [phone] Psoriatic arthritis (HCC); High risk medication use 04/26/2025 11:00 AM CDT Office Visit [facility] Medicine Rheumatology [address] 5th [place] [address] [place] [address] Doris Andrade MD Psoriatic arthritis (HCC) (Primary Dx); High risk medication use 04/19/2025 7:00 AM CDT Infusion [facility] Outpatient Infusion [facility] [address] [place] [address] Psoriatic arthritis (HCC) (Primary Dx) 04/13/2025 Orders Only [facility]patient [facility]fusion [facility] [address] [place] [address] Santa Barnes RN 04/08/2025 10:29 AM CDT - 04/08/2025 11:59 PM CDT Hospital Encounter [facility] [address] [place] [address] Discharge Disposition: Discharge to home or self care 04/08/2025 Orders Only [facility] [address] Medical Office [address] [place] [phone] Brian Woo MD Neck pain (Primary Dx) 03/22/2025 7:30 AM CDT Infusion [facility] Outpatient [facility]fusion Center [address] [place] [address] Psoriatic arthritis (HCC) (Primary Dx) 03/08/2025 Telephone [facility] [address] Medical Office Building [address] [place] [phone] Guerita Snow 02/22/2025 8:50 AM CDT Lab [facility] [address] [place] [address] High risk medication use 02/22/2025 7:00 AM CDT Infusion [facility] Outpatient [facility]fusion Center [address] [place] [address] Psoriatic arthritis (HCC) (Primary Dx) 02/18/2025 [facility] [address] [facility] 5th [place] [address] [place] [address] Doris Andrade MD High risk medication use (Primary Dx) 02/17/2025 10:26 AM CDT - 02/17/2025 11:59 PM CDT Hospital Encounter [facility] [address] [place] [address] Discharge Disposition: Discharge to home or self care 02/17/2025 10:26 AM CDT - 02/17/2025 11:59 PM CDT Hospital Encounter [facility] [place] [address] Discharge Disposition: Discharge to home or self care 02/17/2025 10:20 AM CDT [facility] [address] 1[address] [place] [address] Alexx Busch MD Tendinitis of right rotator cuff (Primary Dx); Cervical radiculopathy from Last 3 Months Immunizations Immunization Administration Dates Next Due COVID-19 mRNA ([employer]) 0.3 m L (30 mcg) vaccine (12 years and up) 05/17/2024 Influenza, Quadrivalent, Hig h Dose, Preservative Free, Intrr 05/01/2021,05/02/2020 Influenza, Quadrivalent, Spl it, Preservative Free, Intramuscular 06/06/2022,04/16/2019,04/14/2019 Influenza, Trivalent, High D ose, Split, Preservative Free, Intramuscular 04/26/2025 Influenza, Trivalent, Preser vative Free, Intramuscular 05/17/2024 Influenza, Unspecified 04/25/2023 Novel SARS-CoV-2 Monovalent Vaccination (12+ Yrs) LU-READY TO USE 11/30/2021 Pneumococcal Conjugate PCV 13 02/18/2019 Pneumococcal Polysaccharide PPV23 07/23/2019 RSV Vaccine, Pref, Recombina nt, Subunit, Adjuvanted, PF, IM (Arexvy) 07/29/2023 ZOSTER Recombinant 06/09/2020,03/10/2020 Surgical History Surgery Date Site/Laterality Comments ROTATOR CUFF REPAIR 07/21/2016 - 07/20/2017 Right CHOLECYSTECTOMY 07/21/2000 - 07/20/2001 FLUORO GUIDED INJECTION HIP RIGHT 02/24/2019 Right FLUORO GUIDED INJECTION HIP RIGHT 08/09/2019 Right OOPHORECTOMY 07/21/1998 - 07/20/1999 TOTAL HIP ARTHROPLASTY 07/21/2020 - 07/20/2021 JOINT REPLACEMENT SKIN BIOPSY IR PICC LINE PLACEMENT > 5 YEARS 11/19/2022 N/A OVARY SURGERY Medical History Medical History Date Comments COPD (chronic obstructive pulmonary disease) Hypothyroidism MDD (major depressive disorder) Rotator cuff tear Bursitis Arthritis Emphysema lung Emphysema of lung Pneumonia Allergic rhinitis PONV (postoperative nausea and vomiting) scopolamine naive Autoimmune disorder Family History Medical History Relation Name Comments [...] Answered Alcohol Use Standard Drinks/Week Comments Yes 1 (1 standard drink = 0.6 oz pur [...] on file Legal Sex Female 6:49 PM INFORMATION SYSTEMS SPECIALIST Gender Identity Female 09/13/2020 6:20 AM INFORMATION SYSTEMS SPECIALIST Sexual Orientation Not on file Occupation Industry Job Start Date Job End Date Retired Not on file Not on file Not on file Obstetrics History Last Filed Vital Signs Vital Sign Reading Time Taken Comments Blood Pressure 154/83 04/28/2025 11:51 AM CDT Pulse 68 04/28/2025 11:51 AM CDT Temperature 36.1 C (97 F) 04/19/2025 7:07 AM CDT Respiratory Rate 15 03/22/2025 7:18 AM CDT Oxygen Saturation 94% 04/28/2025 11: 51 AM CDT Inhaled Oxygen Concentration - - Weight 83.8 kg (184 lb 12.8 oz) 025 11:51 AM CDT Height 162.6 cm (5' 4) 04/28/2025 11:5 1 AM CDT Body Mass Index 31.72 04/28/2025 11:51 AM CDT Plan of Treatment Upcoming Encounters Date Type Department Care Team (Latest Contact Info) Description 05/25/2025 10:30 AM INFORMATION SYSTEMS SPECIALIST Hospital Encounter [facility] Operating Room [address] [place] [address] Brian Woo MD [address] [place] [address] 05/25/2025 10:30 AM INFORMATION SYSTEMS SPECIALIST - 05/25/2025 1:30 PM INFORMATION SYSTEMS SPECIALIST Surgery [facility] Operating Room [address] [place] [address] Brian Woo MD [address] [place] [address] C6-7 anterior cervical discectomy and fusion Scheduled Procedures Name Priority Associated Diagnoses Date/Ti me FUSION CERVICAL - ANTERIOR DISCECTOMY - 1 LEVEL Neuroforaminal stenosis of cervical spine 05/25/2025 10:30 AM INFORMATION SYSTEMS SPECIALIST Health Maintenance Due Date Last Done Comments Breast Cancer Screening-Mammogram 1960 Colon Cancer Screening-Colonoscopy 1960 Depression Screening 1960 Osteoporosis Screening-Bone Density Scan 1960 Well Visit 65+ 2023 Fall Risk Assessment 11/20/2023 11/19/2022 Pneumococcal vaccine 65+ (3 of 3 - PCV20 or PCV21) 07/23/2024 07/23/2019, 02/18/2019 Covid-19 Vaccine (6 - Pfizer risk 2023- season) 2025 05/17/2024, 11/30/2021, 04/09/2021, Additional history exists DTaP/Tdap/Td Vaccine (2 - Td or Tdap) 08/25/2025 08/25/2015, 11/03/2000 Zoster Vaccine Completed 06/09/2020, 03/10/2020 Hepatitis B Screening Completed 03/26/2024 Hepatitis C Screening Completed 03/26/2024 , 04/25/2023, 03/08/2022, Additional history exists Influenza Vaccine Completed 04/26/2025, , 04/25/2023, Additional history exists Goals Goal Patient Goal Type Associated Problems Recent Progress Patient-Stated? Author CCM Chronic Pain Care Plan Chronic Care Management No change(04/17 7:32 AM CDT) Noelle Chirinos RN Note: Problem: Chronic Pain Goals: 1. Minimize further functional decline 2. Maximize quality of life 3. Control pain Strategies: - Activity/exercise program recommendation - Conservative stepwise pain medicine strategy with multi-disciplinary approach - Recommend healthy lifestyle strategies and compensatory methods as needed Medical Devices Implanted Type Area Roll Forger Device Identifier Shelf Expiration Date Model / Serial / Lot [employer] [id number] 50mm Limit 3 Hole Hip D Hemisphere Offset Shell Acetabular - S0 - [id number] Implanted:Qty: 1 on 11/08/2020 by Will Salguero MD at [facility] Other - see comments Right: Hip [employer] [id number] 03/19/2030 [id number] / 0 / [id number] [employer] [id number] 36mm Lumen Hip D Liner Acetabular Longevity Sterile Latex Free - S0 - [id number] Implanted:Qty: 1 on 11/08/2020 by Will Salguero MD at [facility] Other - see comments Right: Hip [employer] [id number] 06/13/[id number] / 0 / [id number] [employer] [id number] Taperloc 144mm Type 1 Press Fit Reduce Hip 133d 12 Standard - S0 - [id number] Implanted:Qty: 1 on 11/08/2020 by Will Salguero MD at [facility] Other - see comments Right: Hip [employer] [id number] 11/16/2029 [id number] / 0 / [id number] [employer] 650-0660 G7 36mm Type 1 Modular Hip Acetabular -3mm Offset Head Femoral - S0 - [id number] Implanted:Qty: 1 on 11/08/2020 by Will Salguero MD at [facility] Other - see comments Right: Hip [employer] [id number] 10/25/2029 650-0660 / 0 / [id number] [employer] [id number] Trilogy 6.5mm 40mm Self Tap Hip Acetabular Cortical Screw Bone - S0 - [id number] Implanted:Qty: 1 on 11/08/2020 by Will Salguero MD at [facility] Screw Right: Hip [employer] [id number] 03/02/2030 [id number] / 0 / [id number] Procedures Procedure Name Priority Date/Time Associated Diagnosis Comments XR SPINE CERVICAL 6 OR MORE VIEWS Schedule Routine, Read Routine (OP Routine) 04/28/2025 11:25 AM CDT Neck pain COMPREHENSIVE METABOLIC PANEL Routine 04/26/2025 12:37 PM CDT Psoriatic arthritis (HCC) High risk medication use CBC WITH AUTO DIFFERENTIAL Routine 04/26/2025 12:37 PM CDT Psoriatic arthritis (HCC) High risk medication use ERYTHROCYTE SEDIMENTATION RATE Routine 04/26/2025 12:37 PM CDT Psoriatic arthritis (HCC) High risk medication use CRP (ACUTE PHASE) Routine 04/26/2025 12: 37 PM CDT Psoriatic arthritis (HCC) High risk medication use NEURO MR OUTSIDE REFERENCE Routine 04/08/2025 10:29 AM CDT EGFR Routine 02/22/2025 8:43 AM CDT High risk medication use CBC WITHOUT DIFFERENTIAL Routine 02/22/2025 8:43 AM CDT High risk medication use COMPREHENSIVE METABOLIC PANEL Routine 02/22/2025 8:43 AM CDT High risk medication use T-SPOT.TB Routine 02/22/2025 8:43 AM CDT High risk medication use XR TRANSFER OF OUTSIDE FILMS Routine 02/17/2025 10:26 AM CDT PET OUTSIDE REFERENCE Routine 02/17/2025 10:26 AM CDT CO ARTHROCENTESIS ASPIR&/INJ MAJOR JT/BURSA W/O US Routine 02/17/2025 10:20 AM CDT Tendinitis of right rotator cuff HEPATITIS C ANTIBODY Routine 03/26/2024 9:13 AM CDT Psoriatic arthritis (HCC) from Last 3 Months or Most Recently Relevant to Health Maintenance Results * XR Spine Cervical 6 or More Views (04/28/2025 11:25 AM CDT) Anatomical Region Laterality Modality Spine N/A Computed Radiogr aphy 04/28/2025 12:0 9 PM CDT Impressions 04/28/2025 12:09 PM CDT 1. Osteopenia with normal alignment with advanced degenerative endplate changes with hypertrophic spurring and near complete loss of disc space at C6-7 and mild disc space narrowing and spondylosis C4-5. There are no acute fractures or dislocations. No abnormal translation with flexion or extension. 2. Mild narrowing of bilateral C3-4 and C4-5 foramina by spur. Electronically signed by: Magda Abebe M.D. Narrative 04/28/2025 12:09 PM CDT CERVICAL SPINE 6 OR MORE VIEWS, DATE: 04/28/2025 11:15 AM INDICATION: Cervical radiculopathy. Neck pain. M 54.2 COMPARISON: None TECHNIQUE: AP lateral both oblique and lateral flexion and extension views FINDINGS: Osteopenia. Prevertebral soft tissue normal. Normal alignment. Advanced degenerative endplate changes disc space narrowing and hypertrophic spurring C6-7. Mild degenerative endplate changes with disc space narrowing and spondylosis at C4-5. Cervical vertebra demonstrate normal height without fractures. There is no abnormal translation with flexion or extension. Oblique images demonstrate narrowing of bilateral C3-4 and C4-5 foramen by spur. Remainder intervertebral neural foramina are intact and patent. Procedure Note Magda Abebe MD - 04/28/2025 CERVICAL SPINE 6 OR MORE VIEWS, DATE: 04/28/2025 11:15 AM INDICATION: Cervical radiculopathy. Neck pain. M 54.2 COMPARISON: None TECHNIQUE: AP lateral both oblique and lateral flexion and extension views FINDINGS: Osteopenia. Prevertebral soft tissue normal. Normal alignment. Advanced degenerative endplate changes disc space narrowing and hypertrophic spurring C6-7. Mild degenerative endplate changes with disc space narrowing and spondylosis at C4-5. Cervical vertebra demonstrate normal height without fractures. There is no abnormal translation with flexion or extension. Oblique images demonstrate narrowing of bilateral C3-4 and C4-5 foramen by spur. Remainder intervertebral neural foramina are intact and patent. IMPRESSION: 1. Osteopenia with normal alignment with advanced degenerative endplate changes with hypertrophic spurring and near complete loss of disc space at C6-7 and mild disc space narrowing and spondylosis C4-5. There are no acute fractures or dislocations. No abnormal translation with flexion or extension. 2. Mild narrowing of bilateral C3-4 and C4-5 foramina by spur. Electronically signed by: Magda Abebe M.D. us Brian Woo MD IMG XR PROCEDURES Final Re sult * (ABNORMAL) CBC with auto differential (04/26/2025 12:37 PM CDT) White Blood Count 5.5 3.6 - 11.2 K/uL [facility] RBC 4.45 3.63 - 4.92 M/uL [facility] Hemoglobin 12.8 11.9 - 15.5 g/dL [facility] Hematocrit 39.1 36.1 - 44.3 % [facility] MCV 87.9 80.0 - 97.6 fL [facility] MCH 28.7 26.7 - 33.7 pg [facility] MCHC 32.7 32.7 - 35.5 g/dL [facility] RBC Dist Width 14.9 12.3 - 17.0 % [facility] Platelet Count 263 140 - 440 K/uL [facility] MPV 9.4 6.8 - 10.4 fL [facility] Neutrophils % 57.7 38.7 - 74.5 % [facility] Lymphocyte % 21.0 20.0 - 54.3 % [facility] Monocytes % 12.6 4.3 - 13.5 % [facility] Eosinophils % 7.4(H) 0.0 - 6.0 % [facility] Basophil % 1.3 0.0 - 3.0 % [facility] Absolute Neutrophil 3.2 1.8 - 6.6 K/uL [facility] Absolute Lymphocyte 1.2 0.8 - 3.3 K/uL [facility] Absolute Monocyte 0.7 0.2 - 1.2 K/uL [facility] Absolute Eosinophil 0.4 0.0 - 0.5 K/uL [facility] Absolute Basophil 0.1 0.0 - 0.2 K/uL [facility] Nucleated RBC % 0.1 0.0 - 0.4 /100 WBC [facility] Blood 04/26/2025 12:3 7 PM CDT 04/26/2025 1:05 PM CDT us Doris Andrade MD LAB BLOOD ORDERABLES Final Re sult Performing Organization Address [facility] Co de Phone Number [facility] * (ABNORMAL) Erythrocyte sedimentation rate (04/26/2025 12:37 PM CDT) Erythrocyte Sedimentation Rate 30(H) <30 mm/hr [facility] Blood 04/26/2025 12:3 7 PM CDT 04/26/2025 1:05 PM CDT us Doris Andrade MD LAB BLOOD ORDERABLES Final Re sult Performing Organization Address [facility] Co de Phone Number [facility] * CRP (acute phase) (04/26/2025 12:37 PM CDT) C-Reactive Protein, Acute 3.4 <5.0 mg/L [facility] Blood 04/26/2025 12:3 7 PM CDT 04/26/2025 1:05 PM CDT us Doris Andrade MD LAB BLOOD ORDERABLES Final Re sult Performing Organization Address [facility]/ZIP Co de Phone Number [facility] * Comprehensive metabolic panel (04/26/2025 12:37 PM CDT) Total Protein 6.8 6.1 - 8.4 g/dL [facility] Albumin 4.1 3.5 - 5.2 g/dL [facility] Calcium 10.1 8.6 - 10.3 mg/dL [facility] BUN 13 7 - 23 mg/dL [facility] Total Bilirubin 0.32 0.20 - 1.40 mg/dL [facility] Alk Phos, Total 129 35 - 129 IU/L [facility] AST (SGOT) 23 11 - 47 IU/L [facility] ALT (SGPT) 16 6 - 53 IU/L [facility] Creatinine 0.74 0.60 - 1.10 mg/dL [facility] Sodium 138 135 - 145 mmol/L [facility] Potassium 4.6 3.3 - 5.1 mmol/L [facility] Chloride 104 95 - 107 mmol/L [facility] CO2 Content 25 21 - 29 mmol/L [facility] Glucose 89 64 - 99 mg/dL [facility] Comment: NONFASTING GLUCOSE RANGE = 64-199 mg/dL FASTING GLUCOSE 64 - 99 = NORMAL FASTING GLUCOSE 100 - 125 = IMPAIRED FASTING GLUCOSE FASTING GLUCOSE >=126 = PROVISIONAL DIAGNOSIS OF DIABETES eGFR 88.6 >60.0 mL/min/1.7 3 m2 [facility] Comment:eGFR is calculated b y the CKD-EPIcr() equation (2020). Blood 04/26/2025 12:3 7 PM CDT 04/26/2025 1:05 PM CDT us Doris Andrade MD LAB BLOOD ORDERABLES Final Re sult [facility] * Neuro MR Outside Reference (04/08/2025 10:29 AM CDT) Impressions [facility] - 04/08/2025 10:29 AM CDT These images are for Reference purposes only and have not been reviewed by [facility]. There will be no report generated by a [facility]. Narrative [facility] - 04/08/2025 10:29 AM CDT EXAMINATION: Images For Reference Purposes Only us Brian Woo MD IMG MRI PROCEDURES Final R esult Performing Organization Address [facility] Co de Phone Number [email or web address] * T-SPOT.TB Blood (02/22/2025 8:43 AM CDT) [facility] T-SPOT.TB Negative SeeBelow Comment: Normal Value: Negative A negative test result does not exclude the possibility of exposure to or infection with Mycobacterium tuberculosis (M. tuberculosis). Patients with recent exposure to TB infected individuals exhibiting a negative T-SPOT.TB result should be considered for retesting within 6 weeks or if other relevant clinical symptoms indicate. Results from T-SPOT.TB testing must be used in conjunction with each individual's epidemiological history, current medical status, and results of other diagnostic evaluations. The T-SPOT.TB test is qualitative and results are reported as positive, borderline or negative, given that the test controls perform as expected. In line with the Centers for Disease Control and Prevention's 2010 recommendation to report quantitative measurements alongside the qualitative result, the laboratory provides spot counts for informational purposes only. The T-SPOT.TB test should not be interpreted as a quantitative test. T-SPOT.TB Panel A Spot Count 0 [facility] T-SPOT.TB Panel B Spot Count 0 [facility] T[facility]SPOT.TB Negative Control Passed [facility] T-SPOT.TB Positive Control Passed [facility] Comment: Test Performed at: [facility] [address] [place] [id number] KENDY LIN,PHD Blood 02/22/2025 8:43 AM CDT 02/22/2025 9:00 AM CDT us Doris Andrade MD LAB MICROBIOLOGY - GENERAL OR DERABLES Final Result Performing Organization Address [facility] Co de Phone Number [facility] Department [place] [address] * eGFR (02/22/2025 8:43 AM CDT) Pathologist [facility] eGFR 72 >=60 mL/min/1. 73 m2 Comment: Interpretive Data [...] interpretive data was last reviewed 2021. Blood 02/22/2025 8:43 AM CDT 02/22/2025 9:04 AM CDT us Doris Andrade MD LAB BLOOD ORDERABLES Final Re sult [facility] Department [place] [address] * CBC without differential (02/22/2025 8:43 AM CDT) [facility] WBC 8.69 3.80 - 9.90 K/cumm Hgb 13.3 11.9 - 15.5 g/dL [facility] Hct 40.7 35.6 - 45.5 % [facility] Plt 328 150 - 400 K/cumm [facility] MPV 10.7 9.1 - 12.3 fL [facility] RBC 4.66 3.90 - 5.20 M/cumm [facility] MCV 87.3 81.3 - 96.4 fL [facility] MCH 28.5 27.1 - 33.3 pg [facility] MCHC 32.7 32.3 - 35.7 g/dL [facility] RDW CV 13.2 11.1 - 14.9 % [facility] RDW SD 42.3 35.7 - 48.1 fL [facility] NRBC abs 0.00 0.00 - 0.01 K/cumm [facility] Blood 02/22/2025 8:43 AM CDT 02/22/2025 9:04 AM CDT us Doris Andraed MD LAB BLOOD ORDERABLES Final Re sult [facility] Department [place] [address] * Comprehensive metabolic panel (02/22/2025 8:43 AM CDT) Sodium 140 135 - 145 mmol/L Potassium, pl 4.6 3.3 - 4.9 mmol/L [facility] Chloride 104 97 - 110 mmol/L [facility] CO2 27 22 - 32 mmol/L [facility] Anion gap 9 2 - 15 mmol/L [facility] BUN 19 6 - 25 mg/dL [facility] Creatinine 0.88 0.60 - 1.10 mg/dL [facility] Glucose 74 70 - 199 mg/dL [facility] Comment: Interpretive Data Fasting glucose >/= 126 [...] interpretive data was last revised 2022. Calcium 9.8 8.5 - 10.3 mg/dL [facility] Bilirubin, total 0.3 0.1 - 1.2 mg/dL [facility] Protein, pl 6.8 6.5 - 8.5 g/dL [facility] Albumin 4.0 3.5 - 5.0 g/dL [facility] Alk phos 122 40 - 130 Units/L [facility] ALT 14 7 - 45 Units/L [facility] AST 17 10 - 45 Units/L [facility] Blood 02/22/2025 8:43 AM CDT 02/22/2025 9:00 AM CDT Doris Andrade MD LAB BLOOD ORDERABLES Final Re sult Performing Organization Address [facility] Co de Phone Number [facility] Department [place] [address] * XR Outside Reference (02/17/2025 10:26 AM CDT) Impressions [facility] - 02/17/2025 10:26 AM CDT These images are for Reference purposes only and have not been reviewed by [facility]. There will be no report generated by a [facility]iologist. Narrative [facility] - 02/17/2025 10:26 AM CDT EXAMINATION: Images For Reference Purposes Only Alexx Busch MD IMG XR PROCEDURES Fin al Result Performing Organization Address [facility] Co de Phone Number [facility] * PET Outside Reference (02/17/2025 10:26 AM CDT) Impressions [facility] - 02/17/2025 10:26 AM CDT These images are for Reference purposes only and have not been reviewed by [facility]. There will be no report generated by a [facility]iologist. Narrative [facility] - 02/17/2025 10:26 AM CDT EXAMINATION: Images For Reference Purposes Only Alexx Busch MD IMG PET PROCEDURES Fi nal Result [facility] * CO ARTHROCENTESIS ASPIR&/INJ MAJOR JT/BURSA W/O US (02/17/2025 10:20 AM CDT) Narrative Alexx Busch MD - 02/17/2025 10:20 AM CDT Alexx Busch MD 02/17/2025 4:54 PM Subacromial injection Performed by: Alexx Busch MD Authorized by: Alexx Busch MD Subacromial Injection: Consent Given by: Patient Verbal consent obtained?: Yes Supporting Documentation: Indications: Pain Procedure Details: Site: Right Subacromial Patient position: Seated Needle Size: 22 G Approach: Posterior Medications: 3 mL lidocaine 10 mg/mL (1 %); 3 mL BUPivacaine HCl 0.5 % (5 mg/mL); 40 mg triamcinolone 40 mg/mL Patient tolerance: Patient tolerated the procedure well with no immediate complications us Alexx Busch MD IN CLINIC/BEDSIDE ORD ERABLES Final Result * Hepatitis C antibody Blood (03/26/2024 9:13 AM CDT) Hep C Ab Nonreactive Nonreactive Comment:Antibodies to HCV no t detected. Does NOT exclude the possibility of recent exposure to HCV. Current interpretive data was last revised on 22 Blood 03/26/2024 9:13 AM CDT 03/26/2024 10:01 AM CDT Ciara Minor MD LAB MICROBIOLOGY - GEN ERAL ORDERABLES Final Result [facility] Department [place] [address] from Last 3 Months or Most Recently Relevant to Health Maintenance Insurance [facility] CHOICE PLUS [facility] MEDICARE [facility] CHOICE PLUS MEDICARE [facility] Advance Directives For more information, please contact: [phone] Documents on File Type Date Recorded Patient Vice Principal Expl anation ADVANCE DIRECTIVE 07/31/2022 11:28 AM ROSALEE Junior OF [employer] * Full Code (Latest Code Status on File) Date Activated Date Inactivated Comments 11/19/2022 7:29 AM 11/20/2022 5:24 AM * Full Code Date Activated Date Inactivated Comments 11/08/2020 12:53 PM 11/10/2020 8:47 PM Care Teams Composite Layup Worker Relationship Specialty Start Date End Date Judd Woodson MD PCP - General Family Medicine 11/05/18 Emily Hinton NP [address] [place] [address] Nurse Practitioner Horticultural Farmer 10/09/22 Brian Woo MD [address] [place] [address] Consulting Physician Neurosurgery 11/01/22 [facility] [place] - Outpatient Therapy Physical Therapist 07/21/22
--- OUTSIDE RECORDS SUMMARY | 2025-05-05 07:19 | XMS_ITS | Encounter Summary ---
Author Organization [facility] Healthcare Address [address] [place] [address] Care Team Providers Care Enterprise Services Manager Name Role Phone Judd Woodson MD Primary Care Provider [phone] Emily Hinton NP Unavailable [phone] Brian Woo MD Unavailable [phone] Encounter Details Date Type Department Care Team (Late st Contact Info) Description 11/13/2022 Telephone [facility] [address] [place] [address] Mario Souza RN Social History Tobacco Use [...] on file Legal Sex Female 6:49 PM LEGAL ADVISER Gender Identity Female 09/13/2020 6:20 AM LEGAL ADVISER Sexual Orientation Not on file COVID-19 Exposure Response Date Recorded In the last 10 days, have yo u been in contact with someone who was confirmed or suspected to have Coronavirus/COVID-19? No / Unsure 11/15/2022 10:11 AM CDT documented as of this encounter Plan of Treatment Upcoming Encounters Date Type Department Care Team (Latest Contact Info) Description 05/25/2025 10:30 AM LEGAL ADVISER Hospital Encounter [facility] Operating [address] [place] [address] Brian Woo MD [address] [place] [address] 05/25/2025 10:30 AM LEGAL ADVISER - 05/25/2025 1:30 PM LEGAL ADVISER Surgery [facility] Operating Room [address] [place] [address] Brian Woo MD [address] [place] [address] C6-7 anterior cervical discectomy and fusion Scheduled Procedures Name Priority Associated Diagnoses Date/Ti me FUSION CERVICAL - ANTERIOR DISCECTOMY - 1 LEVEL Neuroforaminal stenosis of cervical spine 05/25/2025 10:30 AM LEGAL ADVISER documented as of this encounter Goals Goal [...] on filedocumented in this encounter Care Teams Enterprise Services Manager Relationship Specialty Start Date End Date Judd Woodson MD PCP - General Family Medicine 11/05/18 Emily Hinton NP [address] [place] [address] Nurse Practitioner Truss Driver Helper 10/09/22 Brian Woo MD [address] [place] [address] Consulting Physician Neurosurgery 11/01/22 [facility] [place], [place] - Outpatient Therapy Physical Therapist 07/21/22 documented as of this encounter
== END 2025-05-05 07:16 | disposition home or self-care (01) ==
LOC: CHSIMG 07:16
PROVIDERS: PCP Family Medicine; Visit Provider Nurse Practitioner Family
DX: Z12.31 Encounter for screening mammogram for malignant neoplasm of breast (principal)
CPT/HCPCS: 77063; 77067